=== PATIENT | female | born 1955 | race Caucasian/White ===

== ENCOUNTER 2021-02-14 12:57 | Outpatient (REF) | payer MEDICARE, MEDICAID, SELFPAY ==
--- NOTE | ~2021-02-14 | US_ITS ---
EXAMINATION: ULTRASOUND EXTREMITY NONVASCULAR CLINICAL INFORMATION: Enlarging mass over left deltoid muscle COMPARISON: None TECHNIQUE: Grayscale and color imaging of the soft tissues of the left shoulder using a linear transducer FINDINGS: Palpable abnormality corresponds to a 2 x 0.5 x 1.6 cm complex cyst with slightly thickened wall and some internal echoes. This is 0.7 cm deep from the skin surface. Ultrasound appearance is nonspecific. Resolving hematoma, abscess and fluid collection related to muscle injury could be considered. US/US extremity nonvascular guerrero IMPRESSION: Palpable abnormality corresponds to a nonspecific 2 x 0.5 x 1.6 cm superficial complex cyst.
== END 2021-02-14 12:58 | disposition home or self-care (01) ==
LOC: HO.US 12:57
PROVIDERS: Visit Provider General Practice
DX: R22.32 Localized swelling, mass and lump, left upper limb (principal)
CPT/HCPCS: 76882

== ENCOUNTER → 2021-04-27 15:30 | Outpatient (BNVA) | payer MEDICARE, MEDICAID, SELFPAY | PROVIDERS: PCP Emergency Medicine; Referring Provider General Practice; Visit Provider Surgery | DX: L72.9 Follicular cyst of the skin and subcutaneous tissue, unspecified (principal) | CPT/HCPCS: 99202 ==

== ENCOUNTER 2021-05-16 07:34 | Outpatient (REF) | payer MEDICARE, MEDICAID, SELFPAY ==
[2021-05-16 07:50] VITALS: BMI 32.2
[2021-05-16 07:51] VITALS: BP 129/70; PULSE 89; RESP 16; TEMP 36.6; O2SAT 96
--- NOTE | 2021-05-16 08:58 | P.OP_ITS ---
Operative Note Operative Note Date of Service: 05/16/21 Narrative: Preoperative diagnosis: Lipoma left shoulder Postoperative diagnosis: Lipoma left shoulder, cyst left shoulder Procedure: Excision of lipoma and cyst left shoulder Surgeon: Jimmy Thurman MD Leasing Professional: No physician Anesthesia: Local Indications for procedure: 65-year-old female with a soft tissue mass located in the left shoulder, mobile within the subcutaneous tissue suggestive of a lipoma Operative findings: Lipoma with firm white matter within the lipoma. Underlying the lipoma was a cystic structure with a whitish creamy texture fluid. Specimen: Lipoma left shoulder, cyst left shoulder Estimated blood loss: 5 mL Complications: None Procedure details: Patient was brought to the minor surgery suite placed in a supine position. The site of surgery was confirmed by the patient and informed consent assured. The skin was prepped with Betadine and draped in a sterile fashion. Local anesthesia consisting of 1% lidocaine with epinephrine was then infiltrated over the lesion and a longitudinal fashion. A 2 cm incision was then made with a scalpel carried out through subcutaneous tissue and up to the outer surface of the lipoma. A combination of sharp and blunt dissection was used to dissect the lipoma from the surrounding subcutaneous tissue. Some firm white tophus like material was noted associated with the lipoma. This was excised along with the lipoma. This was sent as a separate specimen to pathology. Below the lipoma was noted to be a cystic structure on the surface of the muscle. This was drained of a creamy white fluid. The cyst wall was then excised off the muscle surface and sent as a separate specimen as well. Hemostasis was assured and the wounds were irrigated with saline solution and suctioned dry. Subcutaneous tissue and dermis were reapproximated using interrupted 3-0 Polysorb sutures. Skin was then closed using a running subcuticular 4 0 Polysorb suture. Steri-Strips 2 x 2 gauze and Tegaderm were then applied. The patient tolerated the procedure well. She was discharged to home in stable condition.
== END 2021-05-16 07:35 | disposition home or self-care (01) ==
LOC: HO.MS 07:34
PROVIDERS: PCP General Practice; Visit Provider Surgery
PROC: (CPT 23071; principal; 2021-05-16 08:00)
DX: D17.22 Benign lipomatous neoplasm of skin and subcutaneous tissue of left arm (principal); L72.8 Other follicular cysts of the skin and subcutaneous tissue; Z87.891 Personal history of nicotine dependence; Z79.899 Other long term (current) drug therapy; Z88.8 Allergy status to other drugs, medicaments and biological substances
CPT/HCPCS: 23071; 88304; 88312

== ENCOUNTER → 2021-05-23 08:45 | Outpatient (BNVA) | payer MEDICARE, MEDICAID, SELFPAY | PROVIDERS: PCP General Practice; Referring Provider General Practice; Visit Provider Surgery | DX: Z48.817 Encounter for surgical aftercare following surgery on the skin and subcutaneous tissue (principal); Z87.2 Personal history of diseases of the skin and subcutaneous tissue | CPT/HCPCS: 99212 ==

== ENCOUNTER 2021-06-23 16:56 | Outpatient (REF) | payer MEDICARE, MEDICAID, SELFPAY ==
--- NOTE | ~2021-06-23 | XR_ITS ---
EXAMINATION: XR ANKLE, RIGHT CLINICAL INFORMATION: Pain COMPARISON: None TECHNIQUE: AP, lateral, and mortise views of the right ankle. FINDINGS: Bone alignment is normal. No fracture or dislocation is seen. The joint spaces are normal. There is question of anterior and lateral soft tissue swelling. XR/XR ankle RT min 3V IMPRESSION: Question anterior lateral soft tissue swelling. Otherwise unremarkable exam.
== END 2021-06-23 16:57 | disposition home or self-care (01) ==
LOC: HO.XRAY 16:56
PROVIDERS: PCP General Practice; Referring Provider General Practice; Visit Provider Nurse Practitioner Family
DX: M25.572 Pain in left ankle and joints of left foot (principal)
CPT/HCPCS: 73610

== ENCOUNTER 2023-09-20 11:53 | Outpatient (REF) | payer OTHER, SELFPAY ==
[2023-09-20 13:36] LABS: MANUAL DIFF FLAG NO
[2023-09-20 13:52] LABS: Basophils Percent Auto 0.2 % (0-2); Eosinophils Absolute Auto 0.1 X10*3/uL (0.0-0.4); Eosinophils Percent Auto 2.6 % (0-4); Hematocrit 35.6 % (37.0-47.0); Hemoglobin 12.1 g/dl (12.0-16.0); Imm Gran Abs Auto 0.02 X10*3/uL (0.00-0.03); Imm Gran Pct Auto 0.4 % (0.0-0.4); Lymphocytes Absolute Auto 0.8 X10*3/uL (1.2-4.9); Lymphocytes Percent Auto 15.4 % (20-40); Mean Corpuscular Hemoglobin 32.5 pg (27.0-33.0); Mean Corpuscular Volume 95.7 fL (80.0-98.0); Mean Platelet Volume 8.7 fL (9.4-12.3); Monocytes Absolute Auto 0.5 X10*3/uL (0.1-1.2); Monocytes Percent Auto 8.8 % (2-11); Neutrophils Absolute Auto 3.9 x10*3/uL (2.0-8.3); Neutrophils Percent Auto 72.6 % (45-73); Platelet Count 245 X10*3/uL (160-400); Red Blood Count 3.72 X10*6/uL (4.20-5.50); Red Cell Distribution Width 12.8 % (11.0-16.0); White Blood Count 5.3 X10*3/uL (4.8-10.8)
[2023-09-20 14:55] LABS: Alanine Aminotransferase 24 U/L (0-31); Albumin Level 4.1 g/dL (3.5-5.0); Alkaline Phosphatase 106 U/L (39-117); Anion Gap 13 (12-20); Aspartate Amino Transferase 23 U/L (5-31); Bilirubin Total 0.2 mg/dL (0.0-1.0); Blood Urea Nitrogen 9 mg/dL (9-16); Calcium 10.9 mg/dL (8.4-10.2); Carbon Dioxide 28 mmol/L (22-29); Chloride 102 mmol/L (96-108); Estimated Glomerular Filt Rate 58; Glucose Random 88 mg/dL (60-115); Potassium 4.2 mmol/L (3.3-5.1); Sodium 139 mmol/L (135-145)
[2023-09-20 15:10] LABS: TSH reflex Free T4 1.76 uIU/mL (0.32-4.0)
== END 2023-09-20 11:54 | disposition home or self-care (01) ==
LOC: HO.HHCL 11:53
PROVIDERS: Visit Provider General Practice
DX: I10 Essential (primary) hypertension (principal); E03.9 Hypothyroidism, unspecified
CPT/HCPCS: 36415; 80053; 84443; 85025

== ENCOUNTER 2024-02-07 13:35 | Outpatient (REF) | payer OTHER, SELFPAY ==
[2024-02-07 16:02] LABS: MANUAL DIFF FLAG NO
[2024-02-07 16:08] LABS: Eosinophils Absolute Auto 0.1 X10*3/uL (0.0-0.4); Hematocrit 36.6 % (37.0-47.0); Hemoglobin 12.5 g/dl (12.0-16.0); Imm Gran Abs Auto 0.02 X10*3/uL (0.00-0.03); Imm Gran Pct Auto 0.4 % (0.0-0.4); Lymphocytes Absolute Auto 1.1 X10*3/uL (1.2-4.9); Lymphocytes Percent Auto 21.4 % (20-40); Mean Corpuscular HGB Conc 34.2 g/dl (31.0-35.0); Mean Corpuscular Hemoglobin 32.4 pg (27.0-33.0); Mean Corpuscular Volume 94.8 fL (80.0-98.0); Mean Platelet Volume 8.8 fL (9.4-12.3); Monocytes Absolute Auto 0.3 X10*3/uL (0.1-1.2); Monocytes Percent Auto 6.7 % (2-11); Neutrophils Absolute Auto 3.5 x10*3/uL (2.0-8.3); Neutrophils Percent Auto 70.5 % (45-73); Platelet Count 251 X10*3/uL (160-400); Red Blood Count 3.86 X10*6/uL (4.20-5.50); Red Cell Distribution Width 12.9 % (11.0-16.0)
== END 2024-02-07 13:36 | disposition home or self-care (01) ==
LOC: HO.HHCL 13:35
PROVIDERS: Visit Provider General Practice
DX: R53.83 Other fatigue (principal)
CPT/HCPCS: 36415; 85025

== ENCOUNTER 2024-02-28 12:38 | Outpatient (REF) | payer OTHER, SELFPAY ==
--- NOTE | ~2024-02-28 | MM_ITS ---
EXAMINATION: BONE DENSITOMETRY CLINICAL INDICATION: Screening for osteoporosis. COMPARISON: This is the patient's baseline examination. TECHNIQUE: Using a [employer] DXA System (software version: 13.1) manufactured by [employer], dual-energy x-ray absorptiometry was performed of the lumbar spine and left hip. The images are of good technical quality. Summary results are attached. FINDINGS: LEFT FEMUR, NECK: BMD 0.951 g/cm2, Z-score 0.4, T-score 0.6, normal. LEFT FEMUR, TOTAL: BMD 1.090 g/cm2, Z-score 1.4, T-score 0.6, normal. AP SPINE L1-L3 (excluding L4): The data of L1-L4 has been changed to exclude the L4 vertebral body, because degenerative sclerosis at this level may cause overestimation of lumbar spine density. BMD 1.082 g/cm2, Z-score 0.1, T-score -0.7, normal. IDENTIFIED RISK FACTORS: Menopause, hysterectomy, bilateral oophorectomy. HISTORY OF FRACTURE: None listed. MEDICATIONS: None listed. MM/XR DEXA axial skeleton IMPRESSION: 1. DIAGNOSIS: Normal bone density based on the lowest T-score value of -0.7 in the lumbar spine applying World Health Organization criteria. 2. 10-YEAR FRACTURE RISK PREDICTION, FRAX: According to the guidelines, FRAX calculation should only be performed on patients in the osteopenia bone density category. Therefore, FRAX was not performed on this patient. 3. Treatment Recommendations: NOF guidelines recommend consideration for treatment in postmenopausal women and men age 50 and older presenting with the following: -A hip or vertebral (clinical or morphometric) fracture. -T-score less than or equal to -2.5 at the femoral neck or spine after appropriate evaluation to exclude secondary causes. -Low bone mass at the hip or spine and a 10-year fracture probability by FRAX of greater than or equal to 3% for hip fracture or greater than or equal to 20% for major osteoporotic fracture based on the [place] adapted WHO algorithm. 4. Other Recommendations: All treatment decisions require clinical judgment and consideration of individual patient factors, including patient preferences, comorbidities, previous drug use, risk factors not captured in the FRAX model (e.g. frailty, falls, vitamin D deficiency, increased bone turnover, interval significant decline in bone density) and possible under or overestimation of fracture risk by FRAX. FUTURE SCAN RECOMMENDATION: People with diagnosed cases of osteoporosis or at high risk for fracture should have regular bone mineral density tests. For patients eligible for Medicare, routine testing is allowed once every 2 years. The testing frequency can be increased to one year for patients who have rapidly progressing disease, those who are receiving or discontinuing medical therapy to restore bone mass, or have additional risk factors.
== END 2024-02-28 12:39 | disposition home or self-care (01) ==
LOC: HO.MAMMO 12:38
PROVIDERS: PCP General Practice; Visit Provider General Practice
DX: Z13.820 Encounter for screening for osteoporosis (principal); E89.41 Symptomatic postprocedural ovarian failure; Z78.0 Asymptomatic menopausal state
CPT/HCPCS: 77080

== ENCOUNTER 2024-05-08 12:49 | Outpatient (REF) | payer OTHER, SELFPAY ==
--- NOTE | ~2024-05-08 | US_ITS ---
EXAMINATION: US SOFT TISSUE NECK CLINICAL INFORMATION: tooth infection with induration of neck. Rule out abscess. COMPARISON: None available. TECHNIQUE: Ultrasound of the neck soft tissues is performed with high- frequency hurst-scale imaging and color Doppler of the submental region. FINDINGS: There is a 5.4 x 1.4 x 2.6 cm complex cystic lesion in the midline submental region level 1A just deep to the skin. This demonstrates peripheral wall enhancement. Differential would include abscess, suppurative of lymph node and given midline submental location, complex thyroglossal duct cyst. There is an adjacent normal-appearing lymph node measuring 1.3 cm in short axis on the left. US/US soft tiss head and/or neck IMPRESSION: 5.4 x 1.4 x 2.6 cm complex cystic submental lesion. Differential would include abscess, suppurative lymph node and given location, complex thyroglossal duct cyst. Findings will be communicated by the [facility] data analytics architect
--- NOTE | ~2024-05-08 | XR_ITS ---
EXAMINATION: XR FACIAL BONES CLINICAL INFORMATION: Abscess. COMPARISON: Ultrasound images from 05/08/2024 TECHNIQUE: 5 views of the facial bones were obtained. FINDINGS: The patient is missing several maxillary and mandibular teeth. No evidence of facial bone fracture. The temporomandibular joints are unremarkable. On these multiple radiographs of the face, there is no convincing maxillary or mandibular erosive change, sclerotic lesion or periostitis. Nevertheless, if there is a high clinical suspicion for periodontal/endodontic disease and odontogenic abscess, CT imaging of the maxillofacial region with intravenous contrast would be a better exam to evaluate the mandibular alveolar bone and adjacent perimandibular soft tissues. There is no soft tissue gas or radiopaque foreign body. The calvarium is intact. The paranasal sinuses are well aerated and without air-fluid levels. The visualized cervical vertebra have normal density, height and alignment. The prevertebral soft tissues are normal. XR/XR facial bones min 3V IMPRESSION: No lytic destructive osseous lesions are identified on these radiographs of the face. If there is high clinical suspicion for active periodontal/endodontic disease and soft tissue abscess, CT imaging of the maxillofacial region with intravenous contrast may be obtained.
== END 2024-05-08 12:50 | disposition home or self-care (01) ==
LOC: HO.US 12:49
PROVIDERS: PCP General Practice; Visit Provider Student in an Organized Health Care Education/Training Program
DX: K04.7 Periapical abscess without sinus (principal); L02.11 Cutaneous abscess of neck
CPT/HCPCS: 70150; 76536

== ENCOUNTER 2025-02-25 16:01 | Outpatient (REF) | payer OTHER, SELFPAY ==
--- NOTE | ~2025-02-25 | XR_ITS ---
EXAMINATION: XR HAND, RIGHT CLINICAL INFORMATION: pain and swelling R 2nd and 3rd metacarpals COMPARISON: None available. TECHNIQUE: PA, lateral, and oblique views of the right hand. FINDINGS: No fracture, dislocation, or suspicious bone lesion. Minimal joint space narrowing noted in the second MCP. 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 Mild degenerative arthritis in the DIP joints of the first and second digits. No periarticular erosions or periarticular osteopenia. Carpal bones are intact and normally aligned. No soft tissue abnormalities. XR/XR hand RT min 3V IMPRESSION: 1. No acute bony abnormalities. 2. Degenerative arthritic changes as discussed, most severe at the STT joints. Electronically signed by: Andrew Ovalle MD 02/25/2025 04:21 PM EDT
--- OUTSIDE RECORDS SUMMARY | 2025-02-25 17:04 | XMS_ITS | Clinical Summary ---
Author Organization [facility] lin Address [address] [address] Care Team Providers Care Lumber Buyer Name Role Phone Ta Simmons MD Primary Care Provider Allergies Active Allergy Reactions Criticality Noted Date Comments Haloperidol Other (See Comments) 01/17/2018 Makes her immobile Medications olanzapine (ZyPREXA) 20 MG tablet TAKE 1 TABLET BY MOUTH AT BEDTIME 2 11/26/2017 Active buPROPion (WELLBUTRIN SR) 150 MG 12 hr tablet TAKE 1 TABLET BY MOUTH EVERY DAY 2 12/24/2017 Active DULoxetine (CYMBALTA) 60 MG capsule TAKE 1 CAPSULE BY MOUTH DAILY 11 01/03/2018 Active fluticasone (FLONASE) 50 mcg/actuation nasal spray USE 1 SPRAY IN BOTH NOSTRILS 2 TIMES A DAY 2 12/27/2017 Active lamoTRIgine 100 mg tr24 TAKE 1 TABLET BY MOUTH TWICE A DAY 2 12/24/2017 Active levothyroxine (SYNTHROID, LEVOTHROID) 125 MCG tablet TAKE 1 TABLET BY MOUTH DAILY 2 12/27/2017 Active lorazepam (ATIVAN) 0.5 MG tablet TAKE 1 TABLET BY MOUTH TWICE A DAY 3 11/26/2017 Active ziprasidone (GEODON) 80 MG capsule TAKE 2 CAPSULES BY MOUTH AT BEDTIME 11 01/03/2018 Active Social History Tobacco Use Types Packs/Day Years Used Date Smoking Tobacco: Former Comments No Sex and Gender Information Value Date Recorded Sex Assigned at Not on file Legal Sex Female 2:32 PM EST Gender Identity Not on file Sexual Orientation Not on file Last Filed Vital Signs Vital Sign Reading Time Taken Comments Blood Pressure 132/72 01/17/2018 3:13 PM EST Pulse 80 01/17/2018 3:13 PM EST Temperature 37 ??C (98.6 ??F) 01/17/2018 3:13 PM EST Respiratory Rate 14 01/17/2018 3:13 PM EST Oxygen Saturation 96% 01/17/2018 3:13 PM EST Inhaled Oxygen Concentration - - Weight 92.5 kg (204 lb) 01/17/2018 3:13 PM EST Height 165.1 cm (5' 5 ) 01/17/2018 3:13 PM EST Body Mass Index 33.95 01/17/2018 3:13 PM EST Plan of Treatment Health Maintenance Due Date Last Done Comments Colorectal Cancer: COLONOSCO PY Screening every 10 yrs (or Modifier) 1957 Depression: Screening Annual ly using PHQ-2/9 in Adults 18 yrs or above (or HM Modifier)([facility]) 1975 Hepatitis C Virus Infection in Adolescents and Adults: Screening (or Modifier) ([facility]) 1975 WILDER Screening: Once using ST OP-BANG Questionnaire for Adults with Conditions or high BMI([facility]) 1975 SDOH Screening Reminder: Sonya augustllkeke for all adults ([facility]) 1975 Tobacco Smoking Cessation: i n Adults excluding Women: Behavioral and Pharmacotherapy Interventions ([facility]) 1975 DTaP/Tdap/Td Vaccines ([facility]) (1 - Tdap) 1976 Colorectal Cancer Screening 45 -75 Yrs (or HM Modifier ) 2002 Colorectal Cancer: FLEXIBLE SIGMOIDOSCOPY Screening every 5 yrs 2002 Colorectal Cancer: Fecal Imm unochemical Test (FIT) Annually [facility] 2002 Colorectal Cancer: High-sens itivity gFOBT Screening Annually [facility] 2002 Colorectal Cancer: Stool Col oguard Screening every 3 yrs 2002 Colorectal Cancer:CT Colonography Screening every 5 yr s 2002 Lipid Screening: Every 5 yrs for Women aged 45+ (or HM Modifier) ([facility]) 2003 Breast Cancer: Screening Sonya ually age 50-74 yrs (or HM Modifier)([facility]) 2007 Lung Cancer: Screening Annua lly in adults aged 50 to 80 years (or HM Modifiers)([facility]) 2007 Pneumococcal Vaccination Scr eening: Patients 50+ yrs of age ([facility]) (1 of 1 - PCV) 2007 Zoster/Shingles Vaccine Seri es Screening: Adults aged 18+ yrs (or HM Modifiers)([facility]) (1 of 2) 2007 Osteoporosis Screening to Pr event Fractures: Women aged 65 years+ ([facility]) 2022 Flu Vaccination: Ages 65+: Y early High Dose Recommended (or Modifier)([facility]) 06/25/2024 COVID-19 Vaccine Screening: Initial Series and Booster Status ([facility]) ( - 2023-25 season) 2024 RSV Vaccines (1 - 1-dose 75+ series) 2032 [employer] Devices Not on file Insurance [facility] [address] MEDICARE Care Teams Lumber Buyer Relationship Specialty Start Date End Date Ta Simmons MD PCP - Director Public Policy 01/17/18
--- OUTSIDE RECORDS SUMMARY | 2025-02-25 17:04 | XMS_ITS | Clinical Summary ---
Author Organization [facility] Facility Address [address] [place] [id number] Care Team Providers Care Customer Engagement Specialist Name Role Phone Joslyn Vaughn Primary Care Provider Unavail able Allergies Active Allergy Reactions Criticality Noted Date Comments Haloperidol Other (see comments) High 01/17/2018 Paralyzed Makes her immobile Medications Melatonin 5 MG capsule Take by mouth Active lidocaine-prilo rowdy (EMLA) cream Apply topically if needed for mild pain Active senna (SENOKOT) 8.6 MG tablet Take 1 tablet by mouth 1 (one) time each day Active prochlorperazin e (COMPAZINE) 10 MG tablet Take 10 mg by mouth every 6 (six) hours if needed for nausea or vomiting Active Paliperidone Palmitate ER 819 MG/2.625ML suspension prefilled syringe Inject into the shoulder, thigh, or buttocks Active polyethylene glycol (GLYCOLAX) 17 g packet Take 80 g by mouth 1 (one) time each day Active acetaminophen (TYLENOL) 325 MG tablet Take by mouth every 6 (six) hours if needed for mild pain Active simethicone (MYLICON) 80 MG chewable tablet Chew 80 mg every 6 (six) hours if needed for flatulence Active lamoTRIgine (LaMICtal) 100 MG tablet Take 100 mg by mouth 1 (one) time each day Active OLANZapine (ZyPREXA) 20 MG tablet Take 20 mg by mouth every night Active LORazepam (ATIVAN) 0.5 MG tablet Take 0.5 mg by mouth every 6 (six) hours if needed for anxiety Active cetirizine (ZyrTEC) 10 MG tablet Take 10 mg by mouth 1 (one) time each day Active lisinopril (PRINIVIL,ZESTR IL) 2.5 MG tablet Take 2.5 mg by mouth 1 (one) time each day Active fluticasone (FLONASE) 50 MCG/ACT nasal spray Administer 1 spray into each nostril 1 (one) time each day Active Cholecalciferol 25 MCG (1000 UT) chewable tablet Chew Active albuterol HFA (PROVENTIL HFA;VENTOLIN HFA) 108 (90 Base) MCG/ACT inhaler Inhale 2 puffs every 6 (six) hours if needed for wheezing Active buPROPion SR (WELLBUTRIN SR) 150 MG 12 hr tablet Take 150 mg by mouth daily 0 Active ibuprofen (ADVIL,MOTRIN) 800 MG tablet TAKE 1 TABLET BY MOUTH EVERY 6 HOURS NEEDED FOR MILD PAIN SCALE 1 TO 3 0 Active levothyroxine (SYNTHROID, LEVOTHROID) 125 MCG tablet Take 125 mcg by mouth daily 0 Active ziprasidone (GEODON) 80 MG capsule TAKE 2 CAPSULES BY MOUTH AT BEDTIME 8 Active oxyCODONE (Roxicodone) 5 MG immediate release tablet Take 1 tablet (5 mg total) by mouth every 4 (four) hours if needed for moderate pain for up to 5 doses 5 tablet 0 Active Active Problems Problem Noted Date Diagnosed Date Allergic rhinitis 08/26/2020 Asthma 08/26/2020 Depressed mood 08/26/2020 Cancer of endometrium 08/26/2020 Hypothyroidism 08/26/2020 Personal history of malignant neoplasm of breast 08/26/2020 Schizoaffective schizophrenia 08/26/2020 Social History Tobacco Use Types Packs/Day Years Used Date Smoking Tobacco: Former Cigarettes Q uit: 2004 Smokeless Tobacco: Never Alcohol Use Standard Drinks/Week Comments Yes 0 (1 standard drink = 0.6 oz pur e alcohol) Comments Unknown Sex and Gender Information Value Date Recorded Sex Assigned at Not on file Legal Sex Female 8:43 AM EDT Gender Identity Not on file Sexual Orientation Not on file Last Filed Vital Signs Vital Sign Reading Time Taken Comments Blood Pressure 132/90 08/31/2020 7:42 AM EDT Pulse 85 08/31/2020 7:42 AM EDT Temperature 36.4 ??C (97.5 ??F) 08/31/2020 7:42 AM ED T Respiratory Rate 16 08/31/2020 7:42 AM EDT Oxygen Saturation 96% 08/31/2020 7:42 AM EDT Inhaled Oxygen Concentration - - Weight 90.7 kg (200 lb) 08/31/2020 7:42 AM EDT Height 162.6 cm (5' 4 ) 08/31/2020 7:42 AM EDT Body Mass Index 34.33 08/31/2020 7:42 AM EDT Plan of Treatment Health Maintenance Due Date Last Done Comments Breast Cancer Screening 1957 Pneumococcal Vaccine: 65+ Ye ars (1 of 2 - PCV) 1963 Colorectal Cancer Screening: Annual FOBT 2006 Colorectal Cancer Screening: Colonoscopy 2006 Colorectal Cancer Screening: Sigmoidoscopy 2006 Influenza Vaccine (#1) 2024 Hepatitis B Vaccine Aged Out No longe r eligible based on patient's age to complete this topic Insurance [facility] MEDICARE Care Teams Customer Engagement Specialist Relationship Specialty Start Date End Date Joslyn Vaughn FNP PCP - General Nurse Practitioner 08/26/20
[2025-02-25 17:36] LABS: MANUAL DIFF FLAG NO
[2025-02-25 17:54] LABS: Estimated Average Glucose 111 mg/dL; Hemoglobin A1C 124.8179 umol/L; Hemoglobin A1c % 5.5 % (<6.0); Total Hemoglobin (HGBA1C) 3361.7126 umol/L
[2025-02-25 18:04] LABS: Alanine Aminotransferase 45 U/L (0-31); Albumin Level 4.3 g/dL (3.5-5.0); Alkaline Phosphatase 111 U/L (39-117); Anion Gap 12 (12-20); Aspartate Amino Transferase 34 U/L (5-31); Bilirubin Total 0.3 mg/dL (0.0-1.0); Blood Urea Nitrogen 9 mg/dL (9-16); Calcium 10.1 mg/dL (8.4-10.2); Carbon Dioxide 27 mmol/L (22-29); Chloride 107 mmol/L (96-108); Estimated Glomerular Filt Rate > 60; Glucose Random 105 mg/dL (60-115); Potassium 3.8 mmol/L (3.3-5.1); Sodium 142 mmol/L (135-145); Total Protein 6.9 g/dL (6.5-8.0)
[2025-02-25 18:18] LABS: Eosinophils Percent Auto 0.2 % (0-4); Hematocrit 36.7 % (37.0-47.0); Hemoglobin 12.6 g/dl (12.0-16.0); Imm Gran Abs Auto 0.05 X10*3/uL (0.00-0.03); Imm Gran Pct Auto 0.8 % (0.0-0.4); Lymphocytes Absolute Auto 1.2 X10*3/uL (1.2-4.9); Mean Corpuscular HGB Conc 34.3 g/dl (31.0-35.0); Mean Corpuscular Hemoglobin 31.7 pg (27.0-33.0); Mean Corpuscular Volume 92.4 fL (80.0-98.0); Mean Platelet Volume 8.6 fL (9.4-12.3); Monocytes Absolute Auto 0.5 X10*3/uL (0.1-1.2); Monocytes Percent Auto 8.4 % (2-11); Neutrophils Absolute Auto 4.3 x10*3/uL (2.0-8.3); Neutrophils Percent Auto 70.6 % (45-73); Platelet Count 250 X10*3/uL (160-400); Red Blood Count 3.97 X10*6/uL (4.20-5.50); Red Cell Distribution Width 12.9 % (11.0-16.0)
[2025-02-26 08:13] LABS: ~Hepatitis C Antibody Nonreactive (Nonreactive)
[2025-02-26 22:19] LABS: Mumps Virus IgG Antibody <9.00 AU/mL; Rubella IgG Antibody <0.90 Index
== END 2025-02-25 16:02 | disposition home or self-care (01) ==
LOC: HO.HHCX 16:01
PROVIDERS: General Practice; Student in an Organized Health Care Education/Training Program; Visit Provider Family Medicine
DX: M79.641 Pain in right hand (principal); I10 Essential (primary) hypertension; K04.7 Periapical abscess without sinus; L02.11 Cutaneous abscess of neck; Z78.9 Other specified health status; Z13.1 Encounter for screening for diabetes mellitus; Z00.00 Encounter for general adult medical examination without abnormal findings
CPT/HCPCS: 36415; 73130; 80053; 83036; 85025; 86735; 86762; 86765; 86803

== ENCOUNTER → 2025-02-25 16:02 | Outpatient (BNV) | payer OTHER, SELFPAY | PROVIDERS: Visit Provider Radiology Diagnostic Radiology | DX: M19.041 Primary osteoarthritis, right hand (principal) | CPT/HCPCS: 73130 ==

== ENCOUNTER 2025-02-25 16:11 | Outpatient (REF) | payer OTHER, SELFPAY ==
--- OUTSIDE RECORDS SUMMARY | 2025-02-25 17:07 | XMS_ITS | Encounter Summary ---
Author Organization [email or web address] Address [address] [place] [address] [address] [place] [address] Care Team Providers Care Net Sql Developer Name Role Phone Loretta Scott MD Primary Care Provider Reason for Referral * Medications - Closed Specialty Diagnoses / Procedures Referred By Marycruz de la torre Referred To Contact Diagnoses Numbness of right thumb Britany Martinez DO [address] [place] [address] Phone: tel: fax: Referral ID Status Reason Start Date Expiration Date Visits Re quested Visits Authorized [id number] Closed 02/25/2025 02/25/2026 1 1 * Consultation (Routine) - Pending Review Specialty Diagnoses / Procedures Referred By Marycruz de la torre Referred To Contact Occupational Therapy Diagnoses Numbness of right thumb Right hand pain Britany Martinez DO [address] [place] [address] Phone: tel: fax: Referral ID Status Reason Start Date Expiration Date Visits Requested Visits Authorized [id number] Pending Review Specialty Services Required 02/25/2025 02/25/2026 1 1 * Neurology (Routine) - Pending Review Specialty Diagnoses / Procedures Referred By Marycruz de la torre Referred To Contact Diagnoses Numbness of right thumb Procedures Nerve conduction test Britany Martinez DO [address] [place] [address] Phone: tel: fax: Referral ID Status Reason Start Date Expiration Date V isits Requested Visits Authorized [id number] Pending Review 02/25/2025 02/25/2026 1 1 * Neurology (Routine) - Pending Review Specialty Diagnoses / Procedures Referred By Marycruz de la torre Referred To Contact Diagnoses Numbness of right thumb Procedures EMG Britany Martinez DO [address] [place] [address] Phone: tel: fax: Referral ID Status Reason Start Date Expiration Date V isits Requested Visits Authorized [id number] Pending Review 02/25/2025 02/25/2026 1 1 Reason for Visit * Reason Comments Carpal Tunnel Encounter Details Date Type Department Care Team (Late st Contact Info) Description 02/25/2025 3:40 PM EDT Office Visit [facility] [address] [place] [address] Numbness of right thumb (Primary Dx); Right hand pain Social History Tobacco Use Types Packs/Day Years Used Date Smoking Tobacco: Former Cigarettes 1 30 Smokeless Tobacco: Never Alcohol Use Standard Drinks/Week Comments Never 0 (1 standard drink = 0.6 oz pur e alcohol) Alcohol Answer Date Recorded How often do you have a drink containing alcohol ? 1 02/22/2025 How many drinks containing a lcohol do you have on a typical day when you are drinking? 0 02/22/2025 How often do you have six or more drinks on one occasion? 0 02/22/2025 Depression Answer Date Recorded Patient Health Questionnaire-9 Score 0 02/03/2024 Patient Health Questionnaire-9 Score 0 02/03/2024 Last PHQ-9: Questionnaire Data Not on file 0 02/03/2024 Housing Stability Answer Date Recorded What is your housing situation today? I have mandi lopez 09/16/[address] you li ve. Do you have problems with any of the following? None of the above 09/16/2023 Food Insecurity Answer Date Recorded Within the past 12 months, y ou worried that your food would run out before you got money to buy more: Never True 09/16/2023 Within the past 12 months,th e food you bought just didn't last and you didn't have enough money to get more: Never True Transportation Answer Date Recorded In the past 12 months, has l ack of transportation kept you from medical appts, meetings, work or from getting things needed for daily living? Yes, it has kept me from medical appointments or getting medications. 09/02/2023 Intimate Partner Violence Answer Date R ecorded Within the last year, have y ou been afraid of your partner or ex-partner? 2 02/22/2025 Within the last year, have y ou been humiliated or emotionally abused in other ways by your partner or ex-partner? 2 Within the last year, have y ou been kicked, hit, slapped, or otherwise physically hurt by your partner or ex-partner? 2 02/22/2025 Within the last year, have y ou been raped or forced to have any kind of sexual activity by your partner or ex-partner? 2 02/22/2025 Utilities Answer Date Recorded In the past 12 months, has t he electric, gas, oil or water company threatened to shut off services in your home? No 09/16/2023 Depression Answer Date Recorded Patient Health Questionnaire-2 Score 0 02/03/2024 Comments Unknown Sex and Gender Information Value Date Recorded Sex Assigned at Female 09/24/2022 10:25 AM EDT Legal Sex Female 10:25 AM EDT Gender Identity Female 09/24/2022 10:25 AM EDT Sexual Orientation Choose not to disclose 2021 10:25 AM EDT documented as of this encounter Last Filed Vital Signs Vital Sign Reading Time Taken Comments Blood Pressure 140/90 02/25/2025 4:04 PM EDT Pulse 87 02/25/2025 3:30 PM EDT Temperature 36.6 ??C (97.8 ??F) 02/25/2025 3:30 PM ED T Respiratory Rate 17 02/25/2025 3:30 PM EDT Oxygen Saturation 95% 02/25/2025 3:30 PM EDT Inhaled Oxygen Concentration - - Weight 94.3 kg (207 lb 12.8 oz) 02/25/2025 3:30 PM EDT Height - - Body Mass Index 35.39 02/15/2025 1:36 PM EDT documented in this encounter Plan of Treatment Upcoming Encounters Date Type Department Care Team (Late st Contact Info) Description 03/11/2025 1:00 PM EDT Office Visit [facility] [address] [facility] [place] [address] Mary Gomez Scheduled Orders Name Type Priority Associated Diagnoses Orde r Schedule EMG Neurology Routine Numbness of right thumb Expected: 02/25/2025 (Approximate), Expires: 02/25/2026 Nerve conduction test Neurology Routine Numbness of right thumb Expected: 02/25/2025 (Approximate), Expires: 02/25/2026 Scheduled Referrals Name Type Priority Associated Diagnoses Order Schedule Referral to Occupational Therapy Outpatient Referral Routine Numbness of right thumb Right hand pain Expected: 02/25/2025 (Approximate), Expires: 02/25/2026 documented as of this encounter Procedures Procedure Name Priority Date/Time Associated Diagnosis Comments XR HAND 3+ VIEWS RIGHT Routine 02/25/2025 4:02 PM EDT Right hand pain documented in this encounter Results * XR Hand 3+ Views Right (02/25/2025 4:02 PM EDT) Anatomical Region Laterality Modality Upper Extremities, Hand Right [facility] 02/25/2025 4:02 PM EDT Narrative 02/25/2025 4:24 PM EDT ?[facility] ?[address] ?[place] [address] ?XRay Report ? Signed ? Patient: Bigda,Maria Dolores ?MR#: [id number] ? : 1955 ?Acct:[id number] ? Age/Sex: 69 / F ?ADM Date: 04/03/25 ? Loc: HO.HHCX ? Attending Dr: Britany Martinez DO ? Ordering Physician: Britany Martinez DO ?? Date of Service: 02/25/25 ?? Procedure(s): XR hand RT min 3V ?? Accession Number(s): [id number] ? cc: Britany Martinez DO ? EXAMINATION: ?? XR HAND, RIGHT ? CLINICAL INFORMATION: ?? pain and swelling R 2nd and 3rd metacarpals ? COMPARISON: ?? None available. ? TECHNIQUE: ?? PA, lateral, and oblique views of the right hand. ? FINDINGS: ?? No fracture, dislocation, or suspicious bone lesion. ?? Minimal joint space narrowing noted in the second MCP. Moderate to ?? 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 CMC joint. ?? Mild degenerative arthritis in the DIP joints of the first and second ?? digits. ?? No periarticular erosions or periarticular osteopenia. ? Carpal bones are intact and normally aligned. ? No soft tissue abnormalities. ? XR/XR hand RT min 3V ?? IMPRESSION: ? 1. No acute bony abnormalities. ?? 2. Degenerative arthritic changes as discussed, most severe at the STT ?? joints. ? Electronically signed by: ??Andrew Ovalle MD ??02/25/2025 04:21 PM EDT RP ? Dictated By: ?Andrew Ovalle MD ? Signed By: ?<Electronically signed by Andrew Ovalle MD in OV> ?02/25/25 1621 ? DD/ 1602 ? TD/TT: 02/25/25 1611 ? Mechanic Foreman: ? Procedure Note Joyce Nieves - 02/25/[address] [address] XRay Report Signed Patient: Maria Dolores UmañaMR#: [id number] : 1955cct:[id number] Age/Sex: 69 / FADM Date: 02/25/25 Loc: HO.HHCX Attending Dr: Britany Martinez DO Ordering Physician: Britany Martinez DO Date of Service: 02/25/25 Procedure(s): XR hand RT min 3V Accession Number(s): [id number] cc: Britany Martinez DO EXAMINATION: XR HAND, RIGHT CLINICAL INFORMATION: pain and swelling R 2nd and 3rd metacarpals COMPARISON: None available. TECHNIQUE: PA, lateral, and oblique views of the right hand. FINDINGS: No fracture, dislocation, or suspicious bone lesion. Minimal joint space narrowing noted in the second MCP. 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 Mild degenerative arthritis in the DIP joints of the first and second digits. No periarticular erosions or periarticular osteopenia. Carpal bones are intact and normally aligned. No soft tissue abnormalities. XR/XR hand RT min 3V IMPRESSION: 1. No acute bony abnormalities. 2. Degenerative arthritic changes as discussed, most severe at the STT joints. Electronically signed by: Andrew Ovalle MD 02/25/2025 04:21 PM EDT RP Dictated By: Andrew Ovalle MD Signed By: <Electronically signed by Andrew Ovalle MD in OV> 02/25/25 1621 DD/ 1602 TD/TT: 02/25/25 1611 Mechanic Foreman: Britany Martinez DO IMG XR PROCEDURES Final Resu lt documented in this encounter Visit Diagnoses Diagnosis Numbness of right thumb- Primary Right hand pain Pain in soft tissues of limb documented in this encounter Additional Health Concerns Assessment Noted Time PHQ-9 Depression Total Score: 0 02/03/20 24 1:24 PM EDT documented as of this encounter Care Teams Net Sql Developer Relationship Specialty Start Date End Date Loretta Scott MD [address] [place] [address] PCP - General Family Medicine 01/03/21 documented as of this encounter
--- OUTSIDE RECORDS SUMMARY | 2025-02-25 17:07 | XMS_ITS | Encounter Summary ---
Author Organization [employer] Address [address] [facility] 7t [place] [address] Care Team Providers Care Pipeline Inspector Name Role Phone Loretta Scott MD Primary Care Provider [phone] Encounter Details Date Type Department Care Team (Late Contact Info) Description 04/05/2023 Abstract [facility] [address] [place] [address] Loretta Scott MD [address] [place] [address] Social History Tobacco Use Types Packs/Day Years Used Date Smoking Tobacco: Never Assessed Depression Answer Date Recorded Patient Health Questionnaire-2 Score 0 04/08/2023 Comments Unknown Sex and Gender Information Value Date Recorded Sex Assigned at Female 09/24/2022 10:25 AM EDT Legal Sex Female 10:25 AM EDT Gender Identity Female 09/24/2022 10:25 AM EDT Sexual Orientation Choose not to disclose 2021 10:25 AM EDT COVID-19 Exposure Response Date Recorded In the last 10 days, have yo u been in contact with someone who was confirmed or suspected to have Coronavirus/COVID-19? No / Unsure 04/08/2023 3:52 PM EDT documented as of this encounter Plan of Treatment Upcoming Encounters Date Type Department Care Team (Late st Contact Info) Description 03/11/2025 1:00 PM EDT Office Visit [facility] [address] [place] [address] Gomez, Mary documented as of this encounter Procedures Procedure Name Priority Date/Time Associated Diagnosis Comments MAMMOGRAPHY Routine 05/09/2022 documented in this encounter Results * Mammography (05/09/2022) Mammogram completed procedure Anatomical Region Laterality Modality Other Historical Provider HEALTH MAINTENANCE Final Result documented in this encounter Visit Diagnoses Not on filedocumented in this encounter Care Teams Pipeline Inspector Relationship Specialty Start Date End Date Loretta Scott MD [address] [place] [address] PCP - General Family Medicine 01/03/21 documented as of this encounter
--- OUTSIDE RECORDS SUMMARY | 2025-02-25 17:07 | XMS_ITS | Encounter Summary ---
Author Organization [employer] Address [address] [place] [address] Care Team Providers Care Shop Tailor Name Role Phone Loretta Scott MD Primary Care Provider [phone] Encounter Details Date Type Department Care Team (Late st Contact Info) Description 02/25/2025 Orders Only [facility] MED[facility]INE [address] [place], [place] [phone] Loretta Scott MD [address] [place], [place] [phone] Essential hypertension (Primary Dx) Social History Tobacco Use Types Packs/Day Years [...] AM EDT documented as of this encounter Plan of Treatment Upcoming Encounters Date Type Department Care Team (Late st Contact Info) Description 03/11/2025 1:00 PM EDT Office Visit [facility] ADULT [facility] [address] [place] [address] Mary Gomez Scheduled Orders Name Type Priority Associated Diagnoses Orde r Schedule Hemoglobin A1c Lab Routine Essential hypertension Expected: 02/25/2025 (Approximate), Expires: 02/25/2026 documented as of this encounter Visit Diagnoses Diagnosis Essential hypertension- Primary Unspecified essential hypertension documented in this encounter Additional Health Concerns Assessment Noted Time PHQ-9 Depression Total Score: 0 02/03/20 24 1:24 PM EDT documented as of this encounter Care Teams Shop Tailor Relationship Specialty Start Date End Date Loretta Scott MD [address] [place] [address] PCP - General Family Medicine 01/03/21 documented as of this encounter
--- OUTSIDE RECORDS SUMMARY | 2025-02-25 17:07 | XMS_ITS | Encounter Summary ---
Author Organization [employer] Address [address] [facility] 7t [place] [address] Care Team Providers Care Tower Observer Name Role Phone Loretta Scott MD Primary Care Provider [phone] Reason for Visit * Reason Comments Med Refill Encounter Details Date Type Department Care Team (Late st Contact Info) Description 02/24/2025 Refill [facility] MED[facility]INE [address] [place], [place] [phone] Loretta Scott MD [address] [place], [place] [phone] Allergic rhinitis, unspecified seasonality, unspecified trigger Social History Tobacco Use Types Packs/Day Years [...] Description 03/11/2025 1:00 PM EDT Office Visit [facility] ADULT [facility] [address] [place] [address] Mary Gomez documented as of this encounter Visit Diagnoses Diagnosis Allergic rhinitis, unspecified seasonality, unspecified trigger documented in this encounter Additional Health Concerns Assessment Noted Time PHQ-9 Depression Total Score: 0 02/03/20 24 1:24 PM EDT documented as of this encounter Care Teams Tower Observer Relationship Specialty Start Date End Date Loretta Scott MD [address] [place] [address] PCP - General Family Medicine 01/03/21 documented as of this encounter
--- OUTSIDE RECORDS SUMMARY | 2025-02-25 17:07 | XMS_ITS | Encounter Summary ---
Author Organization [employer] Address [address] [place] [address] Care Team Providers Care Car Varnisher Name Role Phone Loretta Scott MD Primary Care Provider [phone] Encounter Details Date Type Department Care Team ([facility] st Contact Info) Description 02/25/2025 Telephone [facility] [address] [place], [place] [phone] Britany Martinez DO [address] [place], [place] [phone] Social History Tobacco Use Types Packs/Day Years [...] AM EDT documented as of this encounter Miscellaneous Notes * Telephone Encounter - Britany Martinez DO - 02/25/2025 4:57 PM EDT Please initiate rx for R wrist splint. Thank you. documented in this encounter Plan of Treatment Upcoming Encounters Date Type Department Care Team (Late st Contact Info) Description 03/11/2025 1:00 PM EDT Office Visit [facility] [address] [place] [address] Mary Gomez documented as of this encounter Visit Diagnoses Not on filedocumented in this encounter Additional Health Concerns Assessment Noted Time PHQ-9 Depression Total Score: 0 02/03/20 24 1:24 PM EDT documented as of this encounter Care Teams Car Varnisher Relationship Specialty Start Date End Date Loretta Scott MD [address] [place] [address] PCP - General Family Medicine 01/03/21 documented as of this encounter
--- OUTSIDE RECORDS SUMMARY | 2025-02-25 17:07 | XMS_ITS | Encounter Summary ---
Author Organization [employer] Address [address] [place] [address] 7[address] [place] [address] Care Team Providers Care Stripping Cutter And Winder Name Role Phone Loretta Scott MD Primary Care Provider [phone] Encounter Details Date Type Department Care Team (Late st Contact Info) Description 11/20/2022 Orders Only [facility] [address] [place], [place] [phone] Britany Marc LPN Social History Tobacco Use Types Packs/Day Years Used Date Smoking Tobacco: Never Assessed Comments Unknown Sex and Gender Information Value [...] Description 03/11/2025 1:00 PM EDT Office Visit [facility] [address] [place] [address] Mary Gomez documented as of this encounter Visit Diagnoses Not on filedocumented in this encounter Care Teams Stripping Cutter And Winder Relationship Specialty Start Date End Date Loretta Scott MD [address] [place], [place] [phone] PCP - General Family Medicine 01/03/21 documented as of this encounter
--- OUTSIDE RECORDS SUMMARY | 2025-02-25 17:07 | XMS_ITS | Encounter Summary ---
Author Organization [employer] Address [address] [facility] 7t [place] [address] Care Team Providers Care Community Development Director Name Role Phone Loretta Scott MD Primary Care Provider [phone] Reason for Visit * Reason Onset Date Comments Medication Question 02/24/2025 Encounter Details Date Type Department Care Team ([facility] st Contact Info) Description 02/24/2025 Telephone [facility] MEDICINE [address] [place], [place] [phone] Loretta Scott MD [address] [place], [place] [phone] Medication Question Social History Tobacco Use Types Packs/Day Years [...] the past 12 months, has t he [employer], gas, oil or water company threatened to [...] encounter Miscellaneous Notes * Telephone Encounter - Elpidio Patel RN - 02/25/2025 11:25 AM EDT Tc placed to patient [phone] regarding below message. RN informed patient that labs for A1c and MMR titer has been ordered by PCP and she can go to the lab anytime. Patient also advised to go [facility] for carpal tunnel pain in her bilateral wrists for possible x-rays. Pt to F/U PRN. * Addendum Note - Kamini Oconnell RN - 02/24/2025 3:57 PM EDTAddended by: KAMINI OCONNELL on: 02/24/2025 03:57 PM Modules accepted: Orders * Telephone Encounter - Kamini Oconnell RN - 02/24/2025 3:40 PM EDT Call placed to patient to address her concerns. Advised patient that a lab order can be placed to check her immunity to measles, as patient is unsure if she was vaccinated in the past. Order placed for MMR titer. Advised patient that her A1C was last checked 10/08/2022 and was 5.3% within normal range. Advised patient that this RN will forward her request to her PCP for this additional lab. Per chart review, patient without pre-existing diagnosis of carpal tunnel syndrome. She reports a recent onset of right hand pain. No injury/ trauma. Advised patient that a visit can be scheduled to address this or she can visit the [facility]. Patient reports she will come to the [facility] this week for her hand to be evaluated. All questions answered. Patient verbalizes understanding and agreement with plan of care at this time. * Telephone Encounter - Camilla Pathak - 02/24/2025 10:57 AM EDT PT walked in stating that she had a few questions that she forgot to ask while in her appt a few days ago. Does she need a measles shot, does not remember if she had gotten one at all. A1C checked? She was at a dog show and a dog trained to alert ppl of there A1c went up to her directly and she wants to know if she should get her A1C checked. Has carpal tunnel on the right hand and is looking for recommendations on the pain she is having between palm and thumb. Should she wear a brace or can one be sent to pharmacy? documented in this encounter Plan of Treatment Upcoming Encounters Date Type Department Care Team (Late st Contact Info) Description 03/11/2025 1:00 PM EDT Office Visit [facility] ADULT DENTAL [address] [place] [address] Mary Gomez Scheduled Orders Name Type Priority Associated Diagnoses Orde r Schedule Measles, Mumps, and Rubella (MMR) Antibodies??(IgG) Panel, Immune Status Lab Routine Measles, mumps, rubella (MMR) vaccination status unknown Expected: 02/24/2025 (Approximate), Expires: 02/24/2026 documented as of this encounter Visit Diagnoses Diagnosis Measles, mumps, rubella (MMR) vaccination status unknown documented in this encounter Additional Health Concerns Assessment Noted Time PHQ-9 Depression Total Score: 0 02/03/20 24 1:24 PM EDT documented as of this encounter Care Teams Community Development Director Relationship Specialty Start Date End Date Loretta Scott MD [address] [place] [address] PCP - General Family Medicine 01/03/21 documented as of this encounter
--- OUTSIDE RECORDS SUMMARY | 2025-02-25 17:07 | XMS_ITS | Encounter Summary ---
Author Organization [employer] Address [address] [facility] [address] [place] [address] Care Team Providers Care Public Health Epidemiologist Name Role Phone Loretta Scott MD Primary Care Provider [phone] Encounter Details Date Type Department Care Team (Latest Contact Info) Description 02/25/2025 Travel Social History Tobacco Use Types Packs/Day Years [...] Description 03/11/2025 1:00 PM EDT Office Visit [facility] ADULT DENT[facility] [address] [place] [address] Mary Gomez documented as of this encounter Visit Diagnoses Not on filedocumented in this encounter Additional Health Concerns Assessment Noted Time PHQ-9 Depression Total Score: 0 02/03/20 24 1:24 PM EDT documented as of this encounter Care Teams Public Health Epidemiologist Relationship Specialty Start Date End Date Loretta Scott MD [address] [place] [address] PCP - General Family Medicine 01/03/21 documented as of this encounter
--- OUTSIDE RECORDS SUMMARY | 2025-02-25 17:07 | XMS_ITS | Clinical Summary ---
Author Organization [employer] Address [address] [facility] [address] [place] [address] Care Team Providers Care Leather Cartridge Belt Maker Name Role Phone Loretta Scott MD Primary Care Provider [phone] Allergies Active Allergy Reactions Criticality Noted Date Comments Haloperidol Other High 07/06/2014 Other reaction(s): paralyzed me , Other (See Comments) Paralyzed Makes her immobile Makes her immobile Medications Readi-Cat 2 2 % suspension IF SCAN IS IN THE MORNING DRINK 1ST BOTTLE NIGHT BEFORE AND 2ND BOTTLE 90 MIN BEFORE SCAN. IF SCAN AFTER 12PM DRINK 1ST BOTTLE BY 8AM AND 2N 08/29/20 22 Active buPROPion SR (Wellbutrin SR) 150 MG 12 hr tablet TAKE 1 TABLET BY MOUTH TWICE DAILY IN THE MORNING AND IN THE EVENING 03/01/20 23 Active cholecalciferol (Vitamin D-3) 25 MCG (1000 UT) tablet Take 1 capsule by mouth 2 times daily. Active DULoxetine (Cymbalta) [address] capsule Take 60 mg by mouth at bedtime. 02/27/20 23 Active lamoTRIgine (LaMICtal XR) 100 mg tablet sustained-relea se 24 hour 24 hr tablet TAKE 1 TABLET BY MOUTH TWICE DAILY IN THE MORNING AND AT BEDTIME 02/27/20 23 Active melatonin 5 MG tablet TAKE 2 TABLETS BY MOUTH EVERY DAY AT BEDTIME 03/28/20 23 Active OLANZapine (ZyPREXA) 10 MG tablet TAKE 1 TABLET BY MOUTH AT BEDTIME WITH 5 MG TABLET 03/01/20 23 Active OLANZapine (ZyPREXA) 5 MG tablet TAKE 1 TABLET BY MOUTH AT BEDTIME WITH 10 MG TABLET 03/28/20 23 Active Invega Trinza 819 MG/2.63ML suspension prefilled syringe 01/21/20 23 Active ziprasidone (Geodon) 80 MG capsule TAKE 2 CAPSULES BY MOUTH EVERY DAY AT BEDTIME WITH FOOD 02/27/20 23 Active zolpidem (Ambien) 5 MG tablet 02/21/20 23 Active LORazepam (Ativan) 0.5 MG tablet TAKE 1 TABLET BY MOUTH EVERY DAY NEEDED ANXIETY 11/14/20 23 Active levothyroxine (Synthroid, Levoxyl) 125 MCG tablet TAKE 1 TABLET BY MOUTH EVERY MORNING 90 tablet 3 03/30/20 24 Active Multiple Vitamin (One-Daily Multi-Vitamin) tablet Take 1 tablet by mouth in the morning. 90 tablet 3 04/07/20 24 Active chlorhexidine (Peridex) 0.12 % solution Swish 15 mL morning and night for 1 minute. Spit, do not swallow. Do not eat or drink for 30 minutes following use. 473 mL 05/06/20 24 Active albuterol (Ventolin HFA) 108 (90 Base) MCG/ACT inhaler INHALE 2 PUFFS BY MOUTH EVERY 4 TO 6 HOURS NEEDED 18 g 11 07/31/20 24 Active Myrbetriq 25 MG 24 hr tablet 06/23/20 24 Active cetirizine (ZyrTEC) 10 MG tablet TAKE 1 TABLET BY MOUTH EVERY MORNING 90 tablet 3 08/24/20 24 Active simvastatin (Zocor) 20 MG tablet TAKE 1 TABLET BY MOUTH EVERY EVENING 90 tablet 3 09/16/20 24 Active lisinopril 2.5 MG tabletIndicatio ns:Essential hypertension TAKE 1 TABLET BY MOUTH EVERY MORNING 90 tablet 3 11/17/20 24 Active doxycycline (Vibra-Tabs) 100 MG tabletIndicatio ns:Tick bite of right upper arm, initial encounter Take 2 tablets (200 mg) by mouth 1 (one) time if needed (engorged tick removal) for up to 10 doses. Take with a full glass of water and do not lie down for at least 30 minutes after. 20 tablet 02/23/20 25 Active fluticasone (Flonase) 50 MCG/ACT nasal sprayIndication s:Allergic rhinitis, unspecified seasonality, unspecified trigger USE 1-2 SPRAYS IN EACH NOSTRIL EVERY DAY NEEDED 16 g 11 20 25 Active Diclofenac Sodium 1 % gel Apply 2 g topically if needed in the morning, at noon, in the evening, and at bedtime (pain). 150 g 02/26/20 25 Active acetaminophen (Tylenol 8 Hour) 650 MG ER tablet Take 1 tablet (650 mg) by mouth every 6 (six) hours if needed for mild pain. Do not crush, chew, or split. 40 tablet 1 02/26/20 25 025 Active gabapentin (Neurontin) 100 MG capsule Take 1 capsule (100 mg) by mouth at bedtime. 30 capsule 02/26/20 25 026 Active lidocaine (Lidoderm) 5 % patchIndication s:Numbness of right thumb Apply 1-2 patches topically if needed each day for mild pain. 60 patch 02/26/20 25 Active lidocaine (Lidoderm) 5 % patch Place 1 patch on the skin at bed time. 10/08/20 22 025 Discontinued(Re order (will not trigger notification to Pharmacy)) fluticasone (Flonase) 50 MCG/ACT nasal sprayIndication s:Allergic rhinitis, unspecified seasonality, unspecified trigger USE 1-2 SPRAYS IN EACH NOSTRIL EVERY DAY NEEDED 16 g 08/21/20 23 025 Discontinued acetaminophen (Tylenol) 500 MG tablet Take 1 tablet (500 mg) by mouth every 6 (six) hours if needed for mild pain for up to 20 doses. 20 tablet 05/06/20 24 025 Discontinued gabapentin (Neurontin) 100 MG capsule Take 1 capsule (100 mg) by mouth at bedtime. 30 capsule 02/26/20 25 025 Discontinued(Re order (will not trigger notification to Pharmacy)) lidocaine (Lidoderm) 5 % patchIndication s:Numbness of right thumb Apply 1-2 patches topically if needed each day for mild pain. 60 patch 02/26/20 25 025 Discontinued(Re order (will not trigger notification to Pharmacy)) acetaminophen (Tylenol 8 Hour) 650 MG ER tablet Take 1 tablet (650 mg) by mouth every 6 (six) hours if needed for mild pain. Do not crush, chew, or split. 40 tablet 1 04/02/11 25 025 Discontinued(Re order (will not trigger notification to Pharmacy)) Active Problems Problem Noted Date Diagnosed Date Overactive bladder 02/22/2025 Tick bite of right upper arm 02/22/2025 Overview (02/22/2025): Removed 02/15/25 No surrounding signs of infection, no rashes elsewhere No systemic symptoms or flu like illness or joint pain Assessment & Plan (02/22/2025 7:00 AM EDT): Will provide doxycycline for further post-exposure prophylaxis if she removes an engorged tick History of endometrial cancer 08/07/2024 Chronic periodontitis 05/06/2024 Encounter for annual general medical examination without abnormal findings in adult 02/06/2024 Right hip pain 02/03/2024 Bone pain 04/12/2023 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 Assessment & Plan (08/23/2023 8:16 AM EDT): Stable On Cymbalta Class 1 obesity 04/12/2023 Depression 04/12/2023 Dry eye syndrome 04/12/2023 Left shoulder pain 04/12/2023 Skin tag 04/12/2023 Assessment & Plan (09/25/2023 3:35 PM EDT): Three skin tags removed using xylocaine 2% without epi for anesthesia and cut off with 11-blade patient tolerated without apparent difficulty To monitor for signs of infection, let me know if that occurs Assessment & Plan (08/23/2023 8:17 AM EDT): Will schedule with me for more removals Assessment & Plan (04/12/2023 6:32 AM EDT): Will refer to derm for skin exam and excision of skin tags Cancer of endometrium 08/26/2020 Assessment & Plan (08/23/2023 8:16 AM EDT): Continue f/u at [facility] Orders placed for colon and lung cancer screening Depressed mood 08/26/2020 Malignant neoplasm of uterus 06/19/2020 Chronic rhinitis 12/22/2019 Essential hypertension 10/13/2018 Assessment & Plan (08/11/2024 12:47 PM EDT): At goal here Continue low dose Lisinopril BMP: Lab Results Component Value Date CREATININE 0.96 09/20/2023 K 4.2 09/20/2023 Lipid Panel: ASCVD Risk: Calculate pending updated labs EKG: Obtain baseline at f/u - Aerobic exercise to reduce BP. Initial goal of 30 min walk 3-5x/week. Increase as tolerated. - low-sodium diet (goal: <2g/day) and heart healthy diet such as DASH to reduce BP and prevent ASCVD. - Home BP monitoring 1-2 x day with goal of <140/90. - Seek immediate medical attention for chest pain, palpitations, SOB, syncope, or sudden changes in mental status. - Do not change or discontinue current prescriptions without first consulting health care provider Assessment & Plan (02/06/2024 9:04 AM EDT): ? At goal at home Not at goal here today Continue low dose Lisinopril BMP: Lab Results Component Value Date CREATININE 0.96 09/20/2023 K 4.2 09/20/2023 Lipid Panel: ASCVD Risk: Calculate pending updated labs EKG: Obtain baseline at f/u - Aerobic exercise to reduce BP. Initial goal of 30 min walk 3-5x/week. Increase as tolerated. - low-sodium diet (goal: <2g/day) and heart healthy diet such as DASH to reduce BP and prevent ASCVD. - Home BP monitoring 1-2 x day with goal of <140/90. - Seek immediate medical attention for chest pain, palpitations, SOB, syncope, or sudden changes in mental status. - Do not change or discontinue current prescriptions without first consulting health care provider Assessment & Plan (08/23/2023 8:16 AM EDT): ? 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 Astigmatism 07/08/2018 Schizoaffective schizophrenia 07/08/2018 Assessment & Plan (08/23/2023 8:17 AM EDT): meds per psych Stable Lives with caregiver Hypothyroidism 07/08/2018 Assessment & Plan (08/23/2023 8:16 AM EDT): On Synthroid 125mcg Check TSH today Asthma 04/06/2014 Assessment & Plan (02/06/2024 9:00 AM EDT): With worsening SOB in past several months and feelings of fatigue Will check PFTs, as she thinks this has never been done, for diagnostic accuracy and to guide treatment and further workup, as necessary Personal history of malignant neoplasm of breast 07/03/2006 Resolved Problems Problem Noted Date Diagnosed Date Resolved Date Tooth infection 05/08/2024 08/11/2024 Assessment & Plan (05/08/2024 12:31 PM EDT): Flu/COVID/strep neg today Poor oral hygiene , there is tenderness w palpation in left side of lower mandibulae over last molar, no drainage .There is induration w no fluctuance aprox 4 cm below submandibular area ,mild discomfort to touch,there is no erythema ,swelling , nor increase skin temperature of area There is no airway compression needs to r/o abscess/collection -last chem 08/2023 wnl renal function -tylenol prn advised -CT soft neck w contrast was initially ordered but explained needs PA that may take to 3 days so instead sent today for neck US STAT -pt got apt for image to be done today and referred for facial bones XR -chem,CBC today -change ATB to Augmentin BID for 10 days and advised to stop amoxicillin -alarm signs and symptoms discussed in length w pt,explained that if fever,any breathings issues to immediately got to ED -Apt w PCP 05/12/2024 to monitor for resolution -f w dentist Encounters Date Type Department Care Team Description 02/25/2025 3:40 PM EDT Office Visit [facility] [address] [place] [phone] Numbness of right thumb (Primary Dx); Right hand pain 02/25/2025 Telephone [facility] [address] [place] [address] Ashley MartinezferDO 02/25/2025 Travel 02/25/2025 Orders Only [facility] [address] [place] [phone] oLretta Scott MD Essential hypertension (Primary Dx) 02/24/[address] [phone] Loretta Scott MD Allergic rhinitis, unspecified seasonality, unspecified trigger 02/24/[address] [phone] Loretta Scott MD Medication Question 02/15/2025 1:30 PM EDT Office Visit [address] [phone] Loretta Scott MD Screening for colon cancer (Primary Dx); Dietary counseling; Exercise counseling; Class 2 severe obesity with serious comorbidity and body mass index (BMI) of 35.0 to 35.9 in adult, unspecified obesity type (CMS/HCC); Schizoaffective schizophrenia (CMS/HCC); Chemotherapy-induced neuropathy (CMS/HCC); Cancer of endometrium (CMS/HCC); Encounter for screening mammogram for malignant neoplasm of breast; Encounter for annual general medical examination without abnormal findings in adult; Tick bite of right upper arm, initial encounter 02/15/2025 Travel 02/05/2025 Patient Outreach [facility] [address] [place] [phone] Loretta Scott MD Pre-visit Planning ((Unable to reach for PVP screening, LVM)) from Last 3 Months Immunizations Name Administration Dates Next Due INFLUENZA INJECTABLE QUADRIV ALANT CCIIV4 MDCK Multi-dose vial 10/04/2019 Influenza Injectable Quadriv alant Preservative Free IIV4 MDCK 10/05/2022,09/20/2020 Influenza injectable quadriv alent preservative free 08/21/2023 Influenza, High Dose Seasona l, Preservative Free 08/10/2024 Influenza, IIV3, injectable 12/03/2018,1 ,02/06/2017,11/28 Moderna Covid-19 Vaccine 12+ 08/09/2021,02/29/20 21,01/31/2021 Moderna Covid-19 Vaccine 6+ Bivalent 12/27/2022 Pfizer Covid-19 Vaccine 12+ 02/03/2024 Pneumococcal Conjugate PCV 20 10/05/2022 Pneumococcal Polysaccharide PPSV23 09/11/2006 RSV Adjuvant 11/03/2024 Tdap 07/08/2018 Zoster, Recombinant 12/27/2022,10/05/2022 Social History Tobacco Use Types Packs/Day Years Used Date Smoking Tobacco: Former Cigarettes 1 30 Smokeless Tobacco: Never Tobacco Cessation:Counseling Given: Not Answered Alcohol Use Standard Drinks/Week Comments Never 0 [...] not to disclose 2021 10:25 AM EDT Last Filed Vital Signs Vital Sign Reading [...] 12.8 oz) 02/25/2025 3:30 PM EDT Height 163.2 cm (5' 4.25 ) 02/15/2025 1:36 PM ED T Body Mass Index 35.39 02/15/2025 1:36 PM EDT Plan of Treatment Upcoming Encounters Date Type Department Care Team (Late st Contact Info) Description 03/11/2025 1:00 PM EDT Office Visit [facility] [address] [place] [address] Mary Gomez Health Maintenance Due Date Last Done Comments CT Colonography 1955 Colonoscopy 1957 Colorectal Cancer Screening 1955 FIT DNA/Cologuard 1957 FIT 1955 FOBT 1955 Sigmoidoscopy 1955 Hepatitis C Screening 1975 Dental Oral Exam 02/06/2019 08/08/2018, 07/2017, 08/24/2016, Additional history exists Dental Prophylaxis 02/06/2019 08/08/2018, 1 01/06/2017, 05/03/2017, Additional history exists Dental X-Ray: Bitewings 08/09/2019 08/08/20 18, 05/03/2017, 08/24/2016, Additional history exists Mammogram 05/09/2023 05/09/2022 Depression Screening 02/02/2025 02/03/2024, 02/03/20 24 SDOH Screening 02/02/2025 02/03/2024 Alcohol/Substance Use Screening 02/22/2026 02/22/2025 Tobacco Screening 02/22/2026 02/22/2025 Dental X-Ray: Full Mouth 05/07/2027 05/06/2024, 05/25 Lipid Panel 10/08/2027 10/08/2022 DTaP/Tdap/Td Vaccines (2 - Td or Tdap) 07/08/2028 07/08/2018 Pneumococcal Vaccine: 50+ Years Completed 10/05/2022, 09/11/2006 Zoster Vaccines Completed 12/27/2022, 10/05/2022 Influenza Vaccine Completed 08/10/2024, , 10/05/2022, Additional history exists COVID-19 Vaccine Completed 11/03/2024, 09/2024, 12/27/2022, Additional history exists RSV Patients and Patients Aged 60 years or older Completed 11/03/2024 HIB Vaccines Aged Out No longer eligi ble based on patient's age to complete this topic HPV Vaccines Aged Out No longer eligi ble based on patient's age to complete this topic Hepatitis A Vaccines Aged Out No long er eligible based on patient's age to complete this topic Hepatitis B Vaccines Aged Out No long er eligible based on patient's age to complete this topic IPV Vaccines Aged Out No longer eligi ble based on patient's age to complete this topic Meningococcal Vaccine Aged Out No carmelo martina eligible based on patient's age to complete this topic RSV under 20 months Aged Out No longe r eligible based on patient's age to complete this topic Rotavirus Vaccines Aged Out No longer eligible based on patient's age to complete this topic Procedures Procedure Name Priority Date/Time Associated Diagnosis Comments XR HAND 3+ VIEWS RIGHT Routine 02/25/2025 4:02 PM EDT Right hand pain PANORAMIC RADIOGRAPHIC IMAGE Routine 05/06/2024 1:00 PM EDT LIPID PANEL, STANDARD Routine 10/08/2022 2:40 PM EST HM MAMMOGRAPHY Routine 05/09/2022 PROPHYLAXIS - ADULT Routine 08/08/2018 1 2:00 AM EDT BITEWINGS - 4 RADIOGRAPHIC IMAGES Routine 08/08/2018 12:00 AM EDT PERIODIC ORAL EVALUATION - ESTABLISHED PATIENT Routine 08/08/2018 12:00 AM EDT from Last 3 Months or Most Recently Relevant to Health Maintenance Results * XR Hand 3+ Views Right (02/25/2025 4:02 PM EDT) Anatomical Region Laterality Modality Upper Extremities, Hand Right Radiogra phic Imaging 02/25/2025 4:02 PM EDT Narrative 02/25/2025 4:24 PM EDT ?[facility] ?[address] ?[place] [address] ?XRay Report ? Signed ? Patient: Maria Dolores Umaña ?MR#: [id number] ? : 1955 ?Acct:[id number] ? Age/Sex: 69 / F ?ADM Date: 02/25/25 ? Loc: HO.HHCX ? Attending Dr: Britany Martinez DO ? Ordering Physician: Britany Martinez DO ?? Date of Service: 02/25/25 ?? Procedure(s): XR hand RT min 3V ?? Accession Number(s): [id number] ? cc: Britany Martinez DO ? EXAMINATION: [...] by Andrew Ovalle MD in OV> ?02/25/25 162 ? DD/ 1602 ? TD/TT: 02/25/25 1611 ? Director Transition: ? Procedure Note Joyce Nieves - 02/25/[address] [phone] XRay Report Signed Patient: Maria Dolores UmañaMR#: [id number] : 1955cct:[id number] Age/Sex: 69 / FADM Date: 02/25/25 Loc: HO.HHCX Attending Dr: Britany Martinez DO Ordering Physician: Britany Martinez DO Date of Service: 02/25/25 Procedure(s): XR hand RT min 3V Accession Number(s): [id number] cc: Britany Martinez DO EXAMINATION: XR HAND, [...] Andrew Ovalle MD 02/25/2025 04:21 PM EDT Dictated By: Andrew Ovalle MD Signed By: <Electronically signed by Andrew Ovalle MD in OV> 02/25/25 1621 DD/ 1602 TD/TT: 02/25/25 1611 Director Transition: us Britany Juan DO IMG XR PROCEDURES Final Resu lt * (ABNORMAL) LIPID PANEL, STANDARD (10/08/2022 2:40 PM EST) Chol/HDLC Ratio 3.3 <5.0 (calc) CONVERTED LEGACY LABS Cholesterol, Total 222(H) <200 mg/dL CONVERTED LEGACY LABS HDL Cholesterol 68 > OR = 50 mg/dL CONVERTED LEGACY LABS LDL Cholesterol 131(H) mg/dL (calc) CONVERTED LEGACY LABS Comment: Reference range: <100 ?? Desirable range <100 mg/dL for primary prevention; ?? <70 mg/dL for patients with CHD or diabetic patients ?? with > or = 2 CHD risk factors. ?? LDL-C is now calculated using the Sergio-Fernández ?? calculation, which is a validated novel method providing ?? better accuracy than the Friedewald equation in the ?? estimation of LDL-C. ?? Sergio WELLS et al. BUSTER. 2013;310(19): 2593-6847 ?? (http://education.Gobooks/faq/QSB049) Non-HDL Cholesterol 154(H) <130 mg/dL (calc) CONVERTED LEGACY LABS Comment: For patients with diabetes plus 1 major ASCVD risk ?? factor, treating to a non-HDL-C goal of <100 mg/dL ?? (LDL-C of <70 mg/dL) is considered a therapeutic ?? option. Triglycerides 120 <150 mg/dL CONVE RTED LEGACY LABS 10/08/2022 2:40 PM EST us Loretta Scott MD LAB BLOOD ORDERABLES Final Res ult CONVERTED LEGACY LABS * Mammography (05/09/2022) Mammogram completed procedure Anatomical Region Laterality Modality Other Historical Provider HEALTH MAINTENANCE Final Result from Last 3 Months or Most Recently Relevant to Health Maintenance Insurance [facility] SCO DENTAL - [facility] Care Teams Leather Cartridge Belt Maker Relationship Specialty Start Date End Date Loretta Scott MD [address] [place] [address] PCP - General Family Medicine 01/03/21
--- OUTSIDE RECORDS SUMMARY | 2025-02-25 17:07 | XMS_ITS | Encounter Summary ---
Author Organization [employer] Address [address] [facility] [address] [place] [address] Care Team Providers Care Boiler Fitter Name Role Phone Loretta Scott MD Primary Care Provider [phone] Encounter Details Date Type Department Care Team (Late Contact Info) Description 07/24/2023 Orders Only [facility] [address] [place] [address] Loretta Scott MD [address] [place] [address] Social History Tobacco Use Types Packs/Day Years Used Date Smoking Tobacco: Never Smokeless Tobacco: Never Alcohol Use Standard Drinks/Week Comments Never 0 (1 standard drink = 0.6 oz pur e alcohol) Depression Answer Date Recorded Patient Health Questionnaire-2 [...] 1:00 PM EDT Office Visit [facility] [address] [place] [address] Mary Gomez documented as of this encounter Visit Diagnoses Not on filedocumented in this encounter Care Teams Boiler Fitter Relationship Specialty Start Date End Date Loretta Scott MD [address] [place] [address] PCP - General Family Medicine 01/03/21 documented as of this encounter
--- OUTSIDE RECORDS SUMMARY | 2025-02-25 17:07 | XMS_ITS | Encounter Summary ---
Author Organization [employer] Address [address] [place] [address] [address] [place] [address] Care Team Providers Care Altitude Chamber Technician Name Role Phone Loretta Scott MD Primary Care Provider [phone] Encounter Details Date Type Department Care Team (Late st Contact Info) Description 03/18/2023 Orders Only [facility] [address] [place], [place] [phone] Britany Marc LPN Social History Tobacco Use [...] Description 03/11/2025 1:00 PM EDT Office Visit [facility] [address] [place], [place] [phone] Mary Gomez documented as of this encounter Visit Diagnoses Not on filedocumented in this encounter Care Teams Altitude Chamber Technician Relationship Specialty Start Date End Date Loretta Scott MD [address] [place], [place] [phone] PCP - General Family Medicine 01/03/21 documented as of this encounter
--- OUTSIDE RECORDS SUMMARY | 2025-02-25 17:07 | XMS_ITS | Encounter Summary ---
Author Organization [employer] Address [address] [place] [address] [address] [place] [address] Care Team Providers Care Waterworks Supervisor Name Role Phone Loretta Scott MD Primary Care Provider [phone] Encounter Details Date Type Department Care Team (Late st Contact Info) Description 12/20/2022 Orders Only [facility] [address] [place], [place] [phone] Britany Marc LPN Social History Tobacco Use [...] Description 03/11/2025 1:00 PM EDT Office Visit [facility] [address] [place], [place] [phone] Mary Gomez documented as of this encounter Visit Diagnoses Not on filedocumented in this encounter Care Teams Waterworks Supervisor Relationship Specialty Start Date End Date Loretta Scott MD [address] [place], [place] [phone] PCP - General Family Medicine 01/03/21 documented as of this encounter
== END 2025-02-25 16:12 | disposition home or self-care (01) ==
LOC: HO.HHCL 16:11
PROVIDERS: Visit Provider General Practice
DX: Z13.89 Encounter for screening for other disorder (principal)

== ENCOUNTER 2025-03-16 10:07 | Outpatient (REF) | payer OTHER, SELFPAY ==
--- NOTE | 2025-03-16 | EMG_ITS ---
Right median and ulnar motor and sensory studies were performed. Right radial sensory study was performed, and paraspinal muscles were tested with a needle. IMPRESSION: 1. Moderately severe right median neuropathy across carpal tunnel. 2. Right Sergio-Christen anastomosis, a normal variant. MD BIA Santiago/JENNAL / [id number]
--- OUTSIDE RECORDS SUMMARY | 2025-03-16 11:32 | XMS_ITS | Encounter Summary ---
Author Organization [email or web address] Address [address] [place] [address] Care Team Providers Care Rivet Passer Name Role Phone Loretta Scott MD Primary Care Provider [phone] Encounter Details Date Type Department Care Team (Late st Contact Info) Description 02/25/2025 Orders Only [facility] [address] [place], [place] [phone] Loretta Scott MD [address] [place], [place] [phone] Essential hypertension (Primary Dx) Social History Tobacco [...] as of this encounter Miscellaneous Notes * Result Encounter Note - Loretta Scott MD - 02/25/2025 9:26 AM EDT Please let patient know her A1C is totally normal 5.5, for an average blood sugar of 111. Maybe thedog at the dog show just liked her? documented in this encounter Plan of Treatment Not on file documented as of this encounter Procedures Procedure Name Priority Date/Time Associated Diagnosis Comments HEMOGLOBIN A1C Routine 02/25/2025 4:14 PM EDT Essential hypertension documented in this encounter Results * Hemoglobin A1c (02/25/2025 4:14 PM EDT) Hemoglobin A1c 5.5 <6.0 % [facility] Comment:Hemoglobin A1C Refer ence Range Adults: 4.8 - 6.0 % Non diabetic: < 6.0 % Goal: < 7.0 %Additional Action Suggested: > 8.0 %Note: Hemoglobin A1c results are invalid for patients with abnormal amounts of HbF. Blood transfusions may impact the HbA1c concentration in the patient sample. Estimated Average Glucose 111 mg/dL [facility] Comment:eAG = Estimated ave rage glucose which is %A1C expressed asaverage glucose, using the formula of the T8Q-RpmfdetWzprkbn Glucose study (ADAG), Diabetes Care, Vol.31,#8,Jun. 2007 Blood Venous blood specimen / Unknown 02/25/2025 4:14 PM EDT 02/25/2025 5:31 PM EDT us Loretta Scott MD LAB BLOOD ORDERABLES Final Res ult [facility] [address] [place] [phone] [phone] documented in this encounter Visit Diagnoses Diagnosis Essential hypertension- Primary Unspecified essential hypertension documented in this encounter Additional Health Concerns Assessment Noted Time PHQ-9 Depression Total Score: 0 02/03/20 24 1:24 PM EDT documented as of this encounter Care Teams Rivet Passer Relationship Specialty Start Date End Date Loretta Scott MD [address] [place] [address] PCP - General Family Medicine 01/03/21 documented as of this encounter
--- OUTSIDE RECORDS SUMMARY | 2025-03-16 11:32 | XMS_ITS | Clinical Summary ---
Author Organization [employer] Address [address] [facility] [address] [place] [address] Care Team Providers Care Food Aide Name Role Phone Loretta Scott MD Primary Care Provider [phone] Allergies Active Allergy Reactions Criticality Noted Date [...] (08/23/2023 8:16 AM EDT): Continue f/u at [facility] Orders placed for colon and lung cancer [...] Encounters Date Type Department Care Team Description 03/14/2025 Refill [facility] [address] [place] [address] Loretta Scott MD 03/01/2025 Telephone [facility] [address] [place] [address] Loretta Scott MD Results 02/26/[address] [address] Loretta Scott MD Results 02/25/2025 3:40 PM EDT Office Visit [facility] [address] [place] [phone] Britany Martinez DO Numbness of right thumb (Primary Dx); Right hand pain 02/25/2025 Telephone [facility] [address] [place] [phone] Britany Martinez DO 02/25/2025 Travel 02/25/2025 Orders Only [address] [address] Loretta Scott MD Essential hypertension (Primary Dx) 02/24/2025 [place] [address] Loretta Scott MD Allergic rhinitis, unspecified seasonality, unspecified trigger 02/24/2025 [place] [address] Loretta Scott MD Medication Question 02/15/2025 1:30 PM EDT Office Visit [address] [address] Loretta Scott MD Screening for colon cancer [...] initial encounter 02/15/2025 Travel 02/05/2025 Patient Outreach [address] [address] Loretta Scott MD Pre-visit Planning ((Unable to [...] is your housing situation today? I have mandicameron lopez 09/16/[address] you [...] PM ED T Respiratory Rate 17 02/25/2025 3:3 0 PM EDT Oxygen Saturation 95% 02/25/2025 3:30 PM EDT Inhaled Oxygen Concentration - - Weight 94.3 kg (207 lb 12.8 oz) 02/25/2025 3:30 PM EDT Height 163.2 cm (5' 4.25 ) 02/15/2025 1:36 PM ED T Body Mass Index 35.39 02/15/2025 1:36 PM EDT Plan of Treatment Health Maintenance Due Date Last Done Comments CT Colonography 1955 Colonoscopy 1955 Colorectal Cancer Screening 1955 FIT DNA/Cologuard 1955 FIT 1955 FOBT 1955 Sigmoidoscopy 1955 Dental Oral Exam 02/06/2019 08/08/2018, 07/2017, 08/24/2016, Additional history exists Dental Prophylaxis 02/06/2019 08/08/2018, 1 01/06/2017, 05/03/2017, Additional history exists Dental X-Ray: Bitewings 08/09/2019 08/08/20 18, 05/03/2017, 08/24/2016, Additional history exists Mammogram 05/09/2023 05/09/2022 Depression Screening 02/02/2025 02/03/2024, 02/03/20 24 SDOH Screening 02/02/2025 02/03/2024 Alcohol/Substance Use Screening 02/22/2026 02/22/2025 Tobacco Screening 02/25/2026 02/25/2025 Dental X-Ray: Full Mouth 05/07/2027 05/06/2024, 05/25 Lipid Panel 10/08/2027 10/08/2022 DTaP/Tdap/Td Vaccines (2 - Td or Tdap) 07/08/2028 07/08/2018 Pneumococcal Vaccine: 50+ Years Completed 10/05/2022, 09/11/2006 Zoster Vaccines Completed 12/27/2022, 10/05/2022 Influenza Vaccine Completed 08/10/2024, , 10/05/2022, Additional history exists COVID-19 Vaccine Completed 11/03/2024, 09/2024, 12/27/2022, Additional history exists RSV Patients and Patients Aged 60 years or older Completed 11/03/2024 Hepatitis C Screening Completed 02/25/2025 HIB Vaccines Aged Out No longer eligi [...] Routine 02/25/2025 4:14 PM EDT Essential hypertension MEASLES, MUMPS, AND RUBELLA (MMR) AB (IGG) PANEL, IMMUNE STATUS Routine 02/25/2025 4:14 PM EDT Measles, mumps, rubella (MMR) vaccination status unknown HEPATITIS C AB W/REFL TO HCV RNA, QN, PCR Routine 02/25/2025 4:14 PM EDT Encounter for annual general medical examination without abnormal findings in adult COMPREHENSIVE METABOLIC PANEL Routine 02/25/2025 4:14 PM EDT Tooth infection Neck abscess CBC WITH AUTO DIFFERENTIAL Routine 02/25/2025 4:14 PM EDT Tooth infection Neck abscess XR HAND 3+ VIEWS RIGHT Routine 02/25/2025 [...] Recently Relevant to Health Maintenance Results * (ABNORMAL) Measles, Mumps, and Rubella (MMR) Antibodies??(IgG) Panel, Immune Status (02/25/2025 4:14 PM EDT) Mumps Virus IgG Antibody <9.00(A) AU/mL [facility] Comment:AU/mL Interpretation ------- <9.00 Not consistent with immunity9.00-10.99 Equivocal>10.99 Consistent with immunityThe presence of mumps IgG antibody suggests immunizationor past or current infection with mumps virus. Rubella IgG Antibody <0.90(A) Index [facility] Comment:Index Interpretation ----- <0.90 Not consistent with immunity 0.90-0.99 Equivocal > or = 1.00 Consistent with immunityThe presence of rubella IgG antibody suggestsimmunization or past or current infection withrubella virus.THIS TEST WAS PERFORMED AT:[employer] [place] [id number] RASHEED MD Rubeola IgG (Measles) 157.00 AU/mL [facility] Comment:AU/mL Interpretatio n----- <13.50 Not consistent with yaopgfhi99.50-16.49 Equivocal>16.49 Consistent with immunityThe presence of measles IgG suggests immunization orpast or current infection with measles virus.For additional information, please refer tohttp://education.Fiksu/faq/YPB674(This link is being provided for informational/educational purposes only.) Blood Venous blood specimen / Unknown 02/25/2025 4:14 PM EDT 02/25/2025 5:31 PM EDT us Loretta Scott MD LAB BLOOD ORDERABLES Final Res ult [facility] [address] [place] [phone] * (ABNORMAL) CBC auto differential (02/25/2025 4:14 PM EDT) White Blood Count 6.0 4.8 - 10.8 X10*3/uL [facility] Red Blood Count 3.97(L) 4.20 - 5.50 X10*6/uL [facility] Hemoglobin 12.6 12.0 - 16.0 g/dl [facility] Hematocrit 36.7(L) 37.0 - 47.0 % [facility] Mean Corpuscular Volume 92.4 80.0 - 98.0 fL [facility] Mean Corpuscular Hemoglobin 31.7 27.0 - 33.0 pg [facility] Mean Corpuscular HGB Conc 34.3 31.0 - 35.0 g/dl [facility] Red Cell Distribution Width 12.9 11.0 - 16.0 % [facility] Platelet Count 250 160 - 400 X10*3/uL [facility] Mean Platelet Volume 8.6(L) 9.4 - 12.3 fL [facility] Neutrophils Percent Auto 70.6 45 - 73 % [facility] Imm Gran Pct Auto 0.8(H) 0.0 - 0.4 % [facility] Lymphocytes Percent Auto 20.0 20 - 40 % [facility] Monocytes Percent Auto 8.4 2 - 11 % [facility] Eosinophils Percent Auto 0.2 0 - 4 % [facility] Basophils Percent Auto 0.0 0 - 2 % [facility] NRBC Pct Auto 0.0 0.0 - 0.2 /100WBC [facility] Neutrophils Absolute Auto 4.3 2.0 - 8.3 x10*3/uL [facility] Imm Gran Abs Auto 0.05(H) 0.00 - 0.03 X10*3/uL [facility] Lymphocytes Absolute Auto 1.2 1.2 - 4.9 X10*3/uL [facility] Monocytes Absolute Auto 0.5 0.1 - 1.2 X10*3/uL [facility] Eosinophils Absolute Auto 0.0 0.0 - 0.4 X10*3/uL [facility] Basophils Absolute Auto 0.0 0.0 - 0.2 X10*3/uL [facility] NRBC Abs Auto 0.000 0.0 - 0.012 X10*3/uL [facility] Blood Venous blood specimen / Unknown 02/25/2025 4:14 PM EDT 02/25/2025 5:31 PM EDT us Radha Parker MD LAB BLOOD ORDERAB LES Final Result Performing Organization Address City/[facility]/ZIP Co de Phone Number [facility] [address] [place] [phone] * Hepatitis C Antibody with Reflex to HCV, RNA, Quantitative, Real-Time PCR (02/25/2025 4:14 PM EDT) Hepatitis C Antibody Nonreactive Nonreactive [facility] Comment:Antibodies to HCV no t detected; does not exclude early acuteHCV infection. Blood Venous blood specimen / Unknown 02/25/2025 4:14 PM EDT 02/25/2025 5:31 PM EDT us Loretta Scott MD LAB BLOOD ORDERABLES Final Res ult Performing Organization Address City/[facility]/ZIP Co de Phone Number [facility] [address] [place] [phone] * Hemoglobin A1c (02/25/2025 4:14 PM EDT) Hemoglobin A1c 5.5 <6.0 % [facility] Comment:Hemoglobin A1C Refer ence Range Adults: 4.8 - 6.0 % Non diabetic: < 6.0 % Goal: < 7.0 %Additional Action Suggested: > 8.0 %Note: Hemoglobin A1c results are invalid for patients with abnormal amounts of HbF. Blood transfusions may impact the HbA1c concentration in the patient sample. Estimated Average Glucose 111 mg/dL [facility] Comment:eAG = Estimated ave rage glucose which is %A1C expressed asaverage glucose, using the formula of the B8V-HxyorvdDhzhauk Glucose study (ADAG), Diabetes Care, Vol.31,#8,Jun. 2007 Blood Venous blood specimen / Unknown 02/25/2025 4:14 PM EDT 02/25/2025 5:31 PM EDT us Loretta Scott MD LAB BLOOD ORDERABLES Final Res ult [facility] [address] [place] [address] [phone] * (ABNORMAL) Comprehensive Metabolic Panel (02/25/2025 4:14 PM EDT) Sodium 142 135 - 145 mmol/L [facility] Potassium 3.8 3.3 - 5.1 mmol/L [facility] Chloride 107 96 - 108 mmol/L [facility] Carbon Dioxide 27 22 - 29 mmol/L [facility] Anion Gap 12 12 - 20 [facility] Urea Nitrogen (BUN) 9 9 - 16 mg/dL [facility] Creatinine, Serum 0.79 0.5 - 1.4 mg/dL [facility] Estimated Glomerular Filt Rate >60 [facility] Comment:Chronic Kidney Disea se: Estimated GFR < 60 mL/min/1.78o7Grwhht Kidney Disease: Estimated GFR < 15 mL/min/1.73m2 Glucose 105 60 - 115 mg/dL [facility] Calcium 10.1 8.4 - 10.2 mg/dL [facility] Bilirubin, Total 0.3 0.0 - 1.0 mg/dL [facility] Aspartate Amino Transferase 34(H) 5 - 31 U/L [facility] Alanine Aminotransferase 45(H) 0 - 31 U/L [facility] Total Protein 6.9 6.5 - 8.0 g/dL [facility] Albumin Level 4.3 3.5 - 5.0 g/dL [facility] Alkaline Phosphatase 111 39 - 117 U/L [facility] Blood Venous blood specimen / Unknown 02/25/2025 4:14 PM EDT 02/25/2025 5:31 PM EDT us Radha Parker MD LAB BLOOD ORDERAB LES Final Result [facility] [address] [place] [address] [phone] * XR Hand 3+ Views Right (02/25/2025 4:02 PM EDT) Anatomical Region Laterality Modality Upper Extremities, Hand Right Radiogra phic Imaging 02/25/2025 4:02 PM EDT Narrative 02/25/2025 4:24 PM EDT ?[facility] ?[address] ?[place] [address] ?XRay Report ? Signed ? Patient: Bigda,Maria Dolores ?MR#: [id number] ? : 1955 ?Acct:[id number] ? Age/Sex: 69 / F ?ADM Date: 02/25/25 ? Loc: HO.HHCX ? Attending Dr: Britany Martinez DO ? Ordering Physician: Britany Martinez DO ?? Date of Service: 02/25/25 ?? Procedure(s): XR hand RT min 3V ?? Accession Number(s): [id number] ? cc: Britany Martinez DO ? EXAMINATION: [...] DD/ 1602 ? TD/TT: 02/25/25 1611 ? Cellulose Insulation Helper: ? Procedure Note Donkerater, Image - 02/25/[address] [address] XRay Report Signed Patient: Maria Dolores UmañaMR#: [id number] : 1955cct:[id number] Age/Sex: 69 / FADM Date: 02/25/25 Loc: HO.HHCX Attending Dr: Britany Martinez DO Ordering Physician: Britany Martinez DO Date of Service: 02/25/25 Procedure(s): XR hand RT min 3V Accession Number(s): [id number] cc: Britany Martinez DO EXAMINATION: XR HAND, [...] 02/25/25 1621 DD/ 1602 TD/TT: 02/25/25 1611 Cellulose Insulation Helper: Britany Juan DO IMG XR PROCEDURES Final [...] ?? LDL-C is now calculated using the Herrera ?? calculation, which is a validated novel method providing ?? better accuracy than the Friedewald equation in the ?? estimation of LDL-C. ?? Sergio WELLS et al. BUSTER. 2013;310(19): 1877-0858 ?? (http://education.Fiksu/faq/THP036) Non-HDL Cholesterol 154(H) <130 mg/dL (calc) [facility] Comment: For patients with diabetes plus 1 major ASCVD risk ?? factor, treating to a non-HDL-C goal of <100 mg/dL ?? (LDL-C of <70 mg/dL) is considered a therapeutic ?? option. Triglycerides 120 <150 mg/dL [facility] 10/08/2022 2:40 PM EST Loretta Scott MD LAB BLOOD ORDERABLES Final Res ult [facility] * Hm Mammography (05/09/2022) Mammogram completed procedure Anatomical Region Laterality Modality Other Historical Provider HEALTH MAINTENANCE Final Result from Last 3 Months or Most Recently Relevant to Health Maintenance Insurance [facility] Member Subscriber Plan / Payer ( fective 2023-Present) Name:Maria Dolores Umaña Relation to Subscriber:Self Name:Maria Dolores Umaña Payer ID:Not on file Group ID:[id number] Type:Not on file Address: [address] [place] [address] DENTAL - [facility] Care Teams Food Aide Relationship Specialty Start Date End Date Loretta Scott MD [address] [place] [address] [place] [phone] PCP - General Family Medicine 01/03/21
--- OUTSIDE RECORDS SUMMARY | 2025-03-16 11:32 | XMS_ITS | Continuity of Care Document ---
Author Organization [facility] NURSING UNIT COORDINATOR Oncolog y Address [address] [place] [address]- Care Team Providers Care Residential Program Coordinator Name Role Phone Tyler DACOSTA, Loretta Hudson Primary Care Physician [phone] Encounter [facility] [place] Date(s): 02/01/25 - 03/13/25 [facility] NURSING UNIT COORDINATOR Oncology [address] [place] [id number] Attending Physician: Delilah DOUGLAS, Sandy Vee Admitting Physician: Delilah DOUGLAS, Sandy Vee Encounter Type: Pre-OutPatient One Time Allergies, Adverse Reactions, Alerts Substance Criticality Severity Reaction Reaction Severity Status Haldol paralyzed me Activ e Immunizations Given and Recorded Vaccine Date Status Refusal Reason influenza virus vaccine, inactivated 12/03/18 Give n influenza virus vaccine, inactivated 1 09/11/17 Gi symone influenza virus vaccine, inactivated 2 02/06/17 Gi symone influenza virus vaccine, inactivated 11/28/15 Give n Pneumococcal Vaccine (oldterm) 3 09/11/06 Given 1Result Comment: [09/11/2017] [facility] [id number] 2Result Comment: [02/06/2017] 3 questions answered 3Result Comment: LOT # [id number] Medications albuterol CFC free 90 mcg/inh inhalation aerosol 2, puffs, Inhalation, 4 times a day, PRN, # 75 Gm, Refills 3, Tot. Refills 3, Maintenance, 05/22/17 4:39:10 PM EDT, Aerosol, Route to Pharmacy Electronically, [id number], [facility]/pharmacy #[id number] Start Date: 05/22/17 Status: Ordered Quantity: 75.0 Unit: g Repeat number: 4 Ativan 0.5 mg oral tablet 1 tablet = 0.5 mg, By Mouth, Daily, PRN anxiety, occassional use, # 30 tablet, 1 Refills, Maintenance, 10/07/24 3:05:00 PM EST, Tablet, [facility], 161.7, cm, 04/22/24 10:08:00 EDT, Height, 91.7, kg, 10/05/24 13:45:00 EST, Dry Weight Start Date: 10/07/24 Stop Date: 12/06/24 Status: Ordered Quantity: 30.0 Unit: tablet Repeat number: 2 Ativan 0.5 mg oral tablet 1 tablet = 0.5 mg, By Mouth, Daily, PRN anxiety, occassional use, # 30 tablet, 1 Refills, Maintenance, 12/30/24 4:03:00 PM EST, Tablet, [facility], 161.7, cm, 04/22/24 10:08:00 EDT,Height, 91.7, kg, 10/05/24 13:45:00 EST, Dry Weight Start Date: 12/30/24 Stop Date: 02/28/25 Status: Ordered Quantity: 30.0 Unit: tablet Repeat number: 2 buPROPion 150 mg/12 hours (SR) oral tablet, extended release 1 tablet = 150 mg, By Mouth, 2 times a day, for 90 days, # 180 tablet, 1 Refills, Hard Stop :05:00 PM EDT, 10/07/24 3:05:00 PM EST, [facility], 161.7, cm, 04/22/24 10:08:00 EDT, Height, 91.7, kg, 10/05/24 13:45:00 EST, Dry Weight Start Date: 10/07/24 Stop Date: 04/05/25 Status: Ordered Quantity: 180.0 Unit: tablet Repeat number: 2 Cetirizine = 10 mg, By Mouth, Daily in AM, 0 Refills, Maintenance, 12/03/18 2:42:11 PM EST Start Date: 12/03/18 Status: Ordered Repeat number: 1 duloxetine 60 mg oral enteric coated capsule 1 capsule = 60 mg, By Mouth, Daily, # 90 capsule, 1 Refills, Maintenance, 10/07/24 3:05:00 PM EST, [facility], 161.7, cm, 04/22/24 10:08:00 EDT, Height, 91.7, kg, 10/05/24 13:45:00 EST, Dry Weight Start Date: 10/07/24 Stop Date: 04/05/25 Status: Ordered Quantity: 90.0 Unit: capsule Repeat number: 2 fluticasone 50 mcg/inh nasal spray 1 sprays, Nares, Both, 2 times a day, # 16 Gm, 5 Refills, Maintenance, 04/11/18 10:01:21 AM EDT, [facility]/pharmacy #[id number], 1 sprays Nares, Both 2 times a day Start Date: 04/11/18 Status: Ordered Quantity: 16.0 Unit: g Repeat number: 6 Invega Trinza 819 mg/2.625 mL intramuscular suspension, extended release = 819 mg, Intramuscular, Every 3 months, Given in office very 3 months PLEASE PRINT to fax to [facility], # 1 kit, 3 Refills, Maintenance, 01/25/25 10:52:00 AM EST, [facility]) #[id number], 161.7, cm, 04/22/24 10:08:00 EDT, Height, 91.7, kg, 10/05/24 13:45:00 EST, Dry Weight Start Date: 01/25/25 Status: Ordered Quantity: 1.0 Unit: kit Repeat number: 4 Invega Trinza 819 mg/2.625 mL intramuscular suspension, extended release = 819 mg, Intramuscular, Every 3 months, Given in office very 3 months PLEASE PRINT to fax to [facility] /[facility], # 1 kit, 3 Refills, Maintenance, 01/22/25 1:52:00 PM EST Start Date: 01/22/25 Status: Ordered Quantity: 1.0 Unit: kit Repeat number: 4 lamotrigine 100 mg oral tablet, extended release 1 tablet = 100 mg, By Mouth, 2 times a day, for 90 days, # 180 tablet, 1 Refills, Hard Stop 253:05:00 PM EDT, 10/07/24 3:05:00 PM EST, ER Tablet, [facility], 161.7, cm, 04/22/24 10:08:00 EDT, Height, 91.7, kg, 10/05/24 13:45:00 EST, Dry Weight Start Date: 10/07/24 Stop Date: 04/05/25 Status: Ordered Quantity: 180.0 Unit: tablet Repeat number: 2 levothyroxine 125 mcg (0.125 mg) oral tablet 1 tablet = 125 mcg, By Mouth, Daily, # 30 tablet, 5 Refills, Maintenance, 04/11/18 10:01:20 AM EDT, Tablet, [facility]/pharmacy #[id number] Start Date: 04/11/18 Stop Date: 10/08/18 Status: Ordered Quantity: 30.0 Unit: tablet Repeat number: 6 lisinopril 2.5 mg oral tablet 2.5 mg, 1, tablet, By Mouth, Daily in AM, # 30 tablet, Refills 0, Maintenance, 12/03/18 2:40:57 PM EST Start Date: 12/03/18 Status: Ordered Quantity: 30.0 Unit: tablet Repeat number: 1 melatonin 5 mg oral capsule 2 capsule = 10 mg, By Mouth, Daily at bedtime, # 60 capsule, 5 Refills, Maintenance, 04/10/24 4:09:00 PM EDT, [facility], 161.7, cm, 01/14/24 14:07:00 EST, Height, 91.6, kg, 01/14/24 14:07:00 EST, Dry Weight Start Date: 04/10/24 Stop Date: 10/07/24 Status: Ordered Quantity: 60.0 Unit: capsule Repeat number: 6 multivitamin Multiple Vitamins oral tablet 1 tablet, By Mouth, Daily, # 90 tablet, 3 Refills, Maintenance, 04/10/24 4:09:00 PM EDT, Tablet, [facility], Partial fill upon patient request if the prescription is for a scheduleII opioid drug., 1 tablet By Mouth Daily, 161.7, cm, 01/14/24 14:07:00 EST, Height, 91.6, kg, 01/14/24 14:07:00 EST, Dry Weight Start Date: 04/10/24 Status: Ordered Quantity: 90.0 Unit: tablet Repeat number: 4 Myrbetriq 25 mg oral tablet, extended release 1 tablet = 25 mg, By Mouth, Daily, do not crush or chew, # 90 tablet, 3 Refills, Maintenance, 08/03/24 12:33:00 PM EDT, ER Tablet, [facility] # 20, Partial fill upon patient request if the prescription is for a schedule II opioid drug., 161.7, cm, 04/22/24 10:08:00 EDT, Height, 88, kg, 07/31/24 14:02:00 EDT, Dry Weight Start Date: 08/03/24 Status: Ordered Quantity: 90.0 Unit: tablet Repeat number: 4 olanzapine 10 mg oral tablet 10 mg, 1, tablet, By Mouth, Daily, take with 5 mg tab for total daily dose of 15 mg, # 90 tablet, Refills 1, Tot. Refills 1, Maintenance, 08/28/24 7:18:00 AM EDT, Route to Pharmacy Electronically, [facility], Partial fill upon patient request if the prescription is for a scheduleII opioid drug., 161.7, cm, 04/22/24 10:08:00 EDT, Height, 88, kg, 07/31/24 14:02:00 EDT, Dry Weight Start Date: 08/28/24 Status: Ordered Quantity: 90.0 Unit: tablet Repeat number: 2 olanzapine 5 mg oral tablet See Instructions, TAKE 1 TABLET BY MOUTH AT BEDTIME WITH 10 MG TABLET, # 90 tablet, Refills 1, Maintenance, 08/28/24 7:19:00 AM EDT, Instructions Replace Required Details, Route to Pharmacy Electronically, [facility], 161.7, cm, 04/22/24 10:08:00 EDT, Height, 88, kg, 07/31/24 14:02:00 EDT, Dry Weight Start Date: 08/28/24 Status: Ordered Quantity: 90.0 Unit: tablet Repeat number: 1 olanzapine 5 mg oral tablet See Instructions, TAKE 1 TABLET BY MOUTH AT BEDTIME WITH 10 MG TABLET, # 90 tablet, Refills 1, Maintenance, 08/28/24 7:19:00 AM EDT, Instructions Replace Required Details, Route to Pharmacy Electronically, [facility], 161.7, cm, 04/22/24 10:08:00 EDT, Height, 88, kg, 07/31/24 14:02:00 EDT, Dry Weight Start Date: 08/28/24 Status: Ordered Quantity: 90.0 Unit: tablet Repeat number: 1 ziprasidone 80 mg oral capsule 2 capsule = 160 mg, By Mouth, Daily at supper, with food, # 60 capsule, 5 Refills, Maintenance, 07/30/24 2:53:00 PM EDT, Capsule, [facility], 161.7, cm, 04/22/24 10:08:00 EDT, Height, 87.2, kg, 04/22/24 10:08:00 EDT, Dry Weight Start Date: 07/30/24 Stop Date: 01/26/25 Status: Ordered Quantity: 60.0 Unit: capsule Repeat number: 6 ziprasidone 80 mg oral capsule 2 capsule = 160 mg, By Mouth, Daily at supper, with food, # 180 capsule, 1 Refills, Maintenance, 12/30/24 4:04:00 PM EST, Capsule, [facility], 161.7, cm, 04/22/24 10:08:00 EDT, Height, 91.7, kg, 10/05/24 13:45:00 EST, Dry Weight Start Date: 12/30/24 Stop Date: 06/28/25 Status: Ordered Quantity: 180.0 Unit: capsule Repeat number: 2 Problem List Condition Confirmation Course Effective Dates Status H ealth Status Informant Allergic rhinitis Confirmed Active Asthma Confirmed Active Bone pain Confirmed Active Chronic rhinitis Confirmed Active Depression Confirmed Active History of endometrial cancer Confirmed Active Hypothyroidism Confirmed Active Endometrial ca Confirmed Active 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 Overactive bladder Confirmed Active Personal History of Malignant Neoplasm of Breast Confirmed 07/03/06 Active Schizoaffective schizophrenia Confirmed Active Left shoulder pain Confirmed Active Dry eye syndrome Confirmed Active Social History Social History Type Response Smoking Status Former smoker; Tobac co user in household: Yes; Other: quit 2003; entered on: 06/25/17 Sex Sex Representation Female (finding) Patient Care team information Care Team Personnel Name: Dana Dangelo RN Position: Michael RN Member Role: Primary Care Nurse Name: Loretta Scott MD Position: [facility] Physician - Primary Care Member Role: PCP Address: [address], 1[address] [place] [address]- [employer] Tele[employer]: Name: Regi Espitia [place] Position: [facility] Amb Office Staff Member Role: Primary Care Nurse Name: Ciara Magallanes [place] Position: [facility] Amb Office Staff Member Role: Primary Care Nurse Name: Britany Nolan RN Position: [facility] Onco RN Member Role: Primary Care Nurse Name: Adelaida Hutchins RN Position: [facility] Onco RN Member Role: Primary Care Nurse Name: Camilla Garcia RN Position: [facility] Onco RN Member Role: Primary Care Nurse Name: Gabriel Goode MD Position: [facility] Physician - Oncology Member Role: Lifetime Consulting Physician Address: [address] [facility] [place], [place] [address] Telecom: Name: Evelio Garcia RN Position: [facility] Onco RN Member Role: Primary Care Nurse Name: Isauro Valles RN Position: [facility] RN Member Role: Primary Care Nurse Care Team Related Persons Name: BRANDON MINOR Name: NUBIA MINOR Name: ROSA WYNNE Insurance Providers Guarantor name: TONY MINOR Health Plan Information #: 1 Payer: NA Member Number: [id number] Policy Number: NA Group Number[place] [facility] [place] #: 2 Payer: [facility] Member Number: [id number] Policy Number: NA Group Number: [id number]
--- OUTSIDE RECORDS SUMMARY | 2025-03-16 11:33 | XMS_ITS | Encounter Summary ---
Author Organization [employer] Address [address] [place] [address] Care Team Providers Care Shipping Lead Person Name Role Phone Loretta Scott MD Primary Care Provider [phone] Encounter Details Date Type Department Care Team (Late st Contact Info) Description 03/18/2023 Orders Only [facility]EDS [address] [place] [address] Britany Marc LPN Social History Tobacco Use [...] as of this encounter Plan of Treatment Not on file documented as of this encounter Visit Diagnoses Not on filedocumented in this encounter Care Teams Shipping Lead Person Relationship Specialty Start Date End Date Loretta Scott MD [address] [place] [address] PCP - General Family Medicine 01/03/21 documented as of this encounter
--- OUTSIDE RECORDS SUMMARY | 2025-03-16 11:33 | XMS_ITS | Clinical Summary ---
Author Organization [employer] [facility] Address [address] [facility] [place] [address] Care Team Providers Care Dumbwaiter Operator Name Role Phone Ta Simmons MD Primary [...] Adults 18 yrs or above (or HM Modifier)([facility]) 1957 Hepatitis C Virus Infection in Adolescents and Adults: Screening (or Modifier) ([facility]) 1975 WILDER Screening: Once using ST [facility] Questionnaire for Adults with Conditions or high BMI([facility]) 1975 SDOH Screening Reminder: Sonya augustllkeke for all adults ([facility]) 1975 Tobacco Smoking Cessation: i n Adults excluding Women: Behavioral and Pharmacotherapy Interventions ([facility]) 1975 DTaP/Tdap/Td Vaccines ([facility]) (1 - Tdap) 1976 Colorectal Cancer Screening 45 -75 Yrs (or HM Modifier ) 2002 Colorectal Cancer: FLEXIBLE SIGMOIDOSCOPY Screening every 5 yrs 2002 Colorectal Cancer: Fecal Imm unochemical Test (FIT) Annually [facility] 2002 Colorectal Cancer: High-sens itivity gFOBT Screening Annually [facility] 2002 Colorectal Cancer: Stool Col oguard Screening every 3 yrs 2002 Colorectal Cancer:CT Colonography Screening every 5 yr s 2002 Lipid Screening: Every 5 yrs for Women aged 45+ (or HM Modifier) ([facility]) 2003 Breast Cancer: Screening Sonya ually age 50-74 yrs (or HM Modifier)([facility]) 2007 Lung Cancer: Screening Annua lly in adults aged 50 to 80 years (or HM Modifiers)([facility]) 2007 Pneumococcal Vaccination Scr eening: Patients 50+ yrs of age ([facility]) (1 of 1 - PCV) 2007 Zoster/Shingles Vaccine Seri es Screening: Adults aged 18+ yrs (or HM Modifiers)([facility]) (1 of 2) 2007 Osteoporosis Screening to Pr event Fractures: Women aged 65 years+ ([facility]) 2022 COVID-19 Vaccine Screening: Initial Series and Booster Status ([facility]) ( - 2023- season) 2024 Flu Vaccination: Ages 65+: Y early High Dose Recommended (or Modifier)([facility]) 06/25/2025 RSV Vaccines (1 - 1-dose 75+ series) 2032 [employer] Not on file Insurance [employer] MEDICARE Care Teams Dumbwaiter Operator Relationship Specialty Start Date End Date Ta Simmons MD PCP - School Leader 01/17/18
--- OUTSIDE RECORDS SUMMARY | 2025-03-16 11:33 | XMS_ITS | Encounter Summary ---
Author Organization [employer] Address [address] [place] [address] Care Team Providers Care Ornamental Iron Worker Helper Name Role Phone Loretta Scott MD Primary Care Provider [phone] Encounter Details Date Type Department Care Team (Late st Contact Info) Description 11/20/2022 Orders Only [facility] MED & PEDS [address] [place] [address] Britany Marc LPN Social History Tobacco Use [...] on filedocumented in this encounter Care Teams Ornamental Iron Worker Helper Relationship Specialty Start Date End Date Loretta Scott MD [address] [place] [address] PCP - General Family Medicine 01/03/21 documented as of this encounter
--- OUTSIDE RECORDS SUMMARY | 2025-03-16 11:33 | XMS_ITS | Clinical Summary ---
Author Organization [facility] Address [address] [place] [address] Care Team Providers Care Artificial Flowers Starcher Name Role Phone Joslyn Vaughn Primary Care [...] Comments Breast Cancer Screening 1957 Pneumococcal Vaccine: 50+ Ye ars (1 of 2 - PCV) 1976 Colorectal Cancer Screening: Annual FOBT 2006 Colorectal Cancer Screening: Colonoscopy 2006 Colorectal Cancer Screening: Sigmoidoscopy 2006 Influenza Vaccine (Season Ended) 2025 Hepatitis B Vaccine Aged Out No longe r eligible based on patient's age to complete this topic Insurance [facility] Medicare Care Teams Artificial Flowers Starcher Relationship Specialty Start Date End Date Joslyn Vaughn FNP PCP - General Nurse Practitioner 08/26/20
--- OUTSIDE RECORDS SUMMARY | 2025-03-16 11:33 | XMS_ITS | Encounter Summary ---
Author Organization [employer] Address [address] [facility] [address] [place] [address] Care Team Providers Care Machine Preservative Filler Name Role Phone Loretta Scott MD Primary Care Provider [phone] Encounter Details Date Type Department Care Team ([facility] st Contact Info) Description 04/05/2023 Abstract [facility] MED[facility] [address] [place], [place] [phone] Loretta Scott MD [address] [place] [address] Social History Tobacco Use Types Packs/Day Years [...] completed procedure Anatomical Region Laterality Modality Other us Historical Provider HEALTH MAINTENANCE Final Result documented in this encounter Visit Diagnoses Not on filedocumented in this encounter Care Teams Machine Preservative Filler Relationship Specialty Start Date End Date Loretta Scott MD [address] [place] [address] PCP - General Family Medicine 01/03/21 documented as of this encounter
--- OUTSIDE RECORDS SUMMARY | 2025-03-16 11:33 | XMS_ITS | Encounter Summary ---
Author Organization [employer] Address [address] [place] [address] Care Team Providers Care Derrick Helper Name Role Phone Loretta Scott MD Primary Care Provider [phone] Encounter Details Date Type Department Care Team (Late st Contact Info) Description 12/20/2022 Orders Only [facility] MED & PEDS [address] [place] [address] Britany Marc LPN Social History Tobacco Use [...] on filedocumented in this encounter Care Teams Derrick Helper Relationship Specialty Start Date End Date Loretta Scott MD [address] [place] [address] PCP - General Family Medicine 01/03/21 documented as of this encounter
--- OUTSIDE RECORDS SUMMARY | 2025-03-16 11:33 | XMS_ITS | Encounter Summary ---
Author Organization [employer] Address [address] [facility] [address]t [place] [address] Care Team Providers Care Web Specialist Name Role Phone Loretta Scott MD Primary Care Provider [phone] Reason for Visit * Reason Comments Med Refill Encounter Details Date Type Department Care Team ([facility] st Contact Info) Description 03/14/2025 Refill [facility] MEDICINE [address] [place], [place] [phone] Loretta Scott MD [address] [place], [place] [phone] Social History Tobacco Use Types Packs/Day Years [...] documented as of this encounter Care Teams Web Specialist Relationship Specialty Start Date End Date Loretta Scott MD [address] [place] [address] PCP - General Family Medicine 01/03/21 documented as of this encounter
--- OUTSIDE RECORDS SUMMARY | 2025-03-16 11:33 | XMS_ITS | Encounter Summary ---
Author Organization [employer] Address [address] [facility] [address] [place] [address] Care Team Providers Care Explosive Operator Bomb Name Role Phone Loretta Scott MD Primary Care Provider [phone] Encounter Details Date Type Department Care Team (Late st Contact Info) Description 07/24/2023 Orders Only [facility] MEDICINE [address] [place], [place] [phone] Loretta Scott MD [address] [place] [address] Social History Tobacco Use Types Packs/Day Years [...] on filedocumented in this encounter Care Teams Explosive Operator Bomb Relationship Specialty Start Date End Date Loretta Scott MD [address] [place], [place] [phone] PCP - General Family Medicine 01/03/21 documented as of this encounter
== END 2025-03-16 10:08 | disposition home or self-care (01) ==
LOC: HO.NEURO 10:07
PROVIDERS: PCP General Practice; Visit Provider Family Medicine
DX: R20.0 Anesthesia of skin (principal)
CPT/HCPCS: 95886; 95909

== ENCOUNTER 2025-11-08 13:02 | Outpatient (AMB) | payer OTHER, SELFPAY ==
--- NOTE | 2025-11-08 13:01 | A.OFFVIS_ITS ---
Vital Signs 3 11/08/25 13:12 Height 5 ft 4 in Weight 211 lb BMI 36.2 BP 136/73 Blood Pressure Location Lt brachial Position Sitting Pulse 84 Intake Visit Reasons: Splinter heel Intake Note: Patient is seen office for evaluation of a splinter on the heel. Pt c/o: onset since the summer unsure what she step on, was unable to get x- rays, minimal discomfort, is unable to see the splinter PCP ordered xrays (not done) [employer] Required: No Accompanied by: Self / Same As Patient Allergies haloperidol (From Haldol) Allergy (Verified 11/08/25 13:02) Unresponsive Medication List - Last Reconciled 11/08/25 by Jimmy Thurman MD albuterol sulfate 90 mcg/actuation 0 mcg inhalation bupropion HCl SR 150 mg PO QAM cetirizine 10 mg PO QAM duloxetine 60 mg PO DAILY fluticasone propionate 50 mcg/actuation sprays intranasal lamotrigine ER 100 mg PO levothyroxine 125 mcg PO QAM lisinopril 2.5 mg PO QAM lorazepam 0.5 mg PO BID melatonin mg PO BEDTIME olanzapine 20 mg PO BEDTIME paliperidone palm (3 month) mg IM ziprasidone HCl 160 mg PO BEDTIME HPI Comments Details: 70-year-old female patient with a previous history of a cyst and lipoma of the left shoulder previously excised on 05/16/2021 now presenting with evaluation of her left heel which she thinks may have a splinter. She also reports a lump in her right shoulder after undergoing an injection at this site. The left foot was apparently injured during the summer when she was walking around the house without shoes on. She is uncertain if a wood splinter injured her foot. She denies any redness, swelling or discharge. She never underwent any further workup with x-rays. The soreness is located at the heel along the medial surface. As for the older she reports obtaining a injection at this location. This was initially quite large but now has decreased in size. She is uncertain if a cyst has developed in this location. [facility] Surgical History History of hysterectomy for cancer (07/2020) Family History Father Bladder cancer Family/Other Breast cancer Maternal Uncle Colon cancer Paternal Uncle Colon cancer Social History Alcohol intake: never Patient Tobacco Use Status: Former Tobacco user Review of Systems Const All systems reviewed & are unremarkable except as noted in HPI and below Physical Exam Vital Signs: Last Vital Signs Pulse 84 11/08/25 13:12 BP 136/73 11/08/25 13:12 BMI result Body Mass Index 36.2 Const General: no acute distress Nutritional Appearance: well nourished Orientation/consciousness: patient oriented x3 Limitations: no limitations Resp Effort & Inspection: normal respiratory effort, no audible wheezes, no cough and no respiratory distress Skin Other: Warm, dry, no rash Neuro General: patient oriented x3 Extrem Other: Right shoulder with a 1.5 cm area of inflammation consistent with changes post immunization. There was no evidence of abscess or cyst formation. Site is minimally tender to palpation. Shoulder/upper arm images: 2 1. Site of palpable lump 1.5 cm in diameter. Ankle/foot/toe images: 2 1. Site of pain in the left foot medial surface/heel. Area of skin cracking is noted. Site was explored with a plain forceps. No erythema, fluctuance or visible foreign bodies identified. No palpable foreign body is noted. There was evidence of skin cracking which may be causing her symptoms. Assessment & Plan Assessment & Plan (1) Subcutaneous cyst: Code(s): L72.9 - Follicular cyst of the skin and subcutaneous tissue, unspecified Category: Medical (2) Foreign body in left foot: Code(s): S90.852A - Superficial foreign body, left foot, initial encounter Category: Medical Qualifiers: Encounter type: initial encounter Qualified Code(s): S90.852A - Superficial foreign body, left foot, initial encounter Plan 70-year-old female patient presenting for evaluation of a possible foreign body in the left foot. This occurred when walking barefoot at home during the summertime. Examination today reveals no open wound but some chronic cracking of the feet at the site described by the patient. Local exploration with a forceps revealed no evidence of a foreign body at this time. I recommended warm soaks daily to the feet. She should follow up as needed. Asked to the injection site in the right shoulder. No surgical intervention is required. This should resolve over time and appears to be mainly an injection reaction. There was no evidence of infection at this time. Coding Level of Care Code New Pt Level 4 (09178) Diagnoses Subcutaneous cyst L72.9 Foreign body in left foot, initial encounter S90.852A Encounter type: initial encounter
[2025-11-08 13:12] VITALS: BP 136/73; PULSE 84; BMI 36.2
== END 2025-11-08 13:35 | disposition home or self-care (01) ==
LOC: HO.HGS 13:03
PROVIDERS: PCP General Practice; Visit Provider Surgery
DX: L72.9 Follicular cyst of the skin and subcutaneous tissue, unspecified (principal); S90.852A Superficial foreign body, left foot, initial encounter
CPT/HCPCS: 99204

== ENCOUNTER → 2025-11-08 13:02 | Outpatient (BNVA) | payer OTHER, SELFPAY | PROVIDERS: PCP General Practice; Visit Provider Surgery | DX: S90.852A Superficial foreign body, left foot, initial encounter (principal); L72.9 Follicular cyst of the skin and subcutaneous tissue, unspecified; W45.8XXA Other foreign body or object entering through skin, initial encounter | CPT/HCPCS: 99202 ==